=== PATIENT | female | born 1970 | race Caucasian/White ===

== ENCOUNTER → 2016-10-24 | Outpatient (CLI) | payer BC ==
[~2016-10-24] MED LIST: /ADVA50050 IN; /ADVA50050 PO; /LANS30GR PO; ACET65TA OR; ADVAIR INH; CLAR5CHW PO; COLA100C2 OR; DEXI60CA PO; DULO30CA PO; FARX1TAB5 PO; FLEXERIL PO; GABA300C3 PO; HYDR-3713 PO; HYDR25TA6 OR; LISI40TA PO; METF500T PO; MIRA3350 PO; MOVA1TAB2 PO; NAPR500T OR; NEUR100C OR; NEUR300C PO; NUCYNTA OR; ONDA4TAB6 PO; OXYC10TA97 OR; PERC5TAB8 OR; PREV30CA11 PO; PROV90AE INH; REGL10TA6 PO; SOMA350T PO; TIZA4CAP3 PO; VENL75TA2 OR; VICT18IN SC; [UNRECOGNIZED DRUG - OTHER] PO; [UNRECOGNIZED DRUG - OTHER] PO
--- NOTE | 2016-11-11 00:36 | ECWPNPC ---
PATIENT NAME: LJ COKER : 1970 GENDER: FEMALE VISIT DATE: 10/24/2016 DISCHARGE DATE: 10/24/16 1204 VISIT LOCKED DATE TIME: PHYSICIAN: MARIBEL DUNCAN RESOURCE: MARIBEL DUNCAN REASON FOR APPOINTMENT 1. INCREASING PAIN HISTORY OF PRESENT ILLNESS HISTORY OF PRESENT ILLNESS: PAIN THE PATIENT DESCRIBES THE PAIN... HERE FOR POST PROCEDURE F/U.HAD TPI 1216 LEFT UPPER BACK.REPORTS MARKED REDUCTION IN PAIN POST PROCEDURE THAT CONTINUES TODAY.CHIEF AREA OF PAIN LOW BACK AND RIGHT LEG PAIN.HAS RESPONDED TO RSIJ IN PAST.RATING PAIN VAS 10/10. FALL RISK SCREENING: SCREENING :NO FALLS IN THE PAST YEAR CURRENT MEDICATIONS TAKING TIZANIDINE HCL 4 MG TABLET 1 TABLET NEEDED, MAY REPEAT X 1 IN 4 HOURS MDD2 ORALLY QHS PRN FOR SPASMS AND PAIN TAKING ADVAIR DISKUS 250-50 MCG/DOSE MISCELLANEOUS 1 INHALATION EVERY 12 HRS TAKING ALBUTEROL SULFATE HFA 108 (90 BASE) MCG/ACT AEROSOL SOLUTION 2 PUFFS INHALATION EVERY 4 HOURS NEEDED TAKING DEXILANT 60 MG CAPSULE DELAYED RELEASE 1 CAPSULE ORALLY ONCE A DAY TAKING NALOXEGOL OXALATE 25 MG TABLET 1 TABLET IN THE MORNING ORALLY ONCE A DAY NEEDED TAKING MULTIVITAMIN GUMMIES ADULT - TABLET CHEWABLE 2 TABLETS ORALLY DAILY TAKING BIOTIN 5000 5 MG CAPSULE 1 CAPSULE ORALLY ONCE A DAY (UNSURE OF DOSE) TAKING VITAMIN B-12 500 MCG TABLET 1 TABLET ORALLY ONCE A DAY TAKING NORCO 10-325 MG TABLET 1 TABLET ORALLY Q6H PRN FOR PAIN MDD4, NOTES: 0600 NOT-TAKING HYDROCHLOROTHIAZIDE 25 MG TABLET 1 TABLET ORALLY ONCE A DAY NOT-TAKING DAPAGLIFLOZIN PROPANEDIOL 10 MG TABLET 1 TABLET ORALLY ONCE A DAY NOT-TAKING ONDANSETRON 4 MG TABLET DISPERSIBLE 1 TABLET ON THE TONGUE AND ALLOW TO DISSOLVE ORALLY EVERY 8 HRS NOT-TAKING VICTOZA ___ SOLUTION PEN-INJECTOR 1.8 MG SUBCUTANEOUS ONCE A DAY NOT-TAKING LISINOPRIL 20 MG TABLET 1 TABLET ORALLY ONCE A DAY NOT-TAKING VITAMIN D (ERGOCALCIFEROL) 31900 UNIT CAPSULE 1 CAPSULE ORALLY WEEKLY NOT-TAKING CRESTOR _ TABLET 1 TABLET ORALLY ONCE A DAY, NOTES: LAST NIGHT NOT-TAKING PREVACID 30 MG CAPSULE DELAYED RELEASE 1 CAPSULE BEFORE A MEAL ORALLY ONCE A DAY MEDICATION LIST REVIEWED AND RECONCILED WITH THE PATIENT PAST MEDICAL HISTORY ASTHMA HYPERTENSION DIABETES MELLITUS GASTROPARESIS LUMBAR DISC DISORDER WITH RADICULOPATHY LUMBAR RADICULOPATHY LUMBAR SPINAL STENOSIS GASTRIC BYPASS ALLERGIES CIPRO: HIVES: ALLERGY NSAIDSP: CANT USE GASTRIC BYPASS SOCIAL HISTORY GENERAL: TOBACCO USE ARE YOU A:NONSMOKER LEARNING BARRIERS / SPECIAL NEEDS ORIENTED TO PLAN OF CARE: PATIENT, PAIN MANAGEMENT PATIENT, ORIENTED TO PLAN OF CARE: PATIENT, PAIN MANAGEMENT PATIENT. NEW PATIENT PAIN DIARY TODAY'S VISITNOTES FROM 0-10, WHAT LEVEL IS YOUR PAIN TODAY?0 PAIN CLINIC PFS, CLERGY, PUBLIC HEALTH REFERRALS PFS REFERRAL NEEDED?NO CLERGY REFERRAL NEEDED?NO PUBLIC HEALTH REFERRAL NEEDED?NO WAS THE PROVIDER NOTIFIED OF ANY PERTINENT INFO?NO PFS REFERRAL NEEDED?NO CLERGY REFERRAL NEEDED?NO PUBLIC HEALTH REFERRAL NEEDED?NO WAS THE PROVIDER NOTIFIED OF ANY PERTINENT INFO?NO REVIEW OF SYSTEMS CONSTITUTIONAL: ANY CHANGE IN YOUR MEDICAL CONDITION? NO . RECENT ILLNESS DENIES . CHILLS NO . FEVER NO . WEIGHT LOSS DENIES . INFECTION: DO YOU HAVE NEW INFECTIONS? NO . DO YOU HAVE HISTORY OF MRSA? NO . MUSCULOSKELETAL: ANY NEW PATTERNS OF PAIN OR NUMBNESS? NO . GASTROENTEROLOGY: ANY NEW CHANGE IN BOWEL CONTROL? NO . GENITOURINARY: ANY NEW CHANGE IN BLADDER CONTROL? NO . IS THERE A CHANCE YOU COULD BE ? NO . HEMATOLOGY/LYMPH: DO YOU TAKE ANY BLOOD THINNERS? (FOR EXAMPLE- COUMADIN, PLAVIX, AGGRENOX, PLATEL, PRADAXA, OR XARELTO) NO . WHEN WAS YOUR LAST DOSE? DATE: TIME: . NEUROLOGY: HAVE YOU FALLEN IN THE PAST 6 MONTHS? NO . ANY NEW EXTREMITY NUMBNESS OR WEAKNESS? NO . CARDIOLOGY: DO YOU HAVE A PACEMAKER OR DEFIBRILLATOR? NO . CHEST PAIN DENIES . SHORTNESS OF BREATH DENIES . RESPIRATORY: HAVE YOU BEEN SICK IN THE PAST WEEK? NO . FEVER NO . FLU LIKE SYMPTOMS? NO . COUGH NO, DENIES . SHORTNESS OF BREATH DENIES . INTEGUMENTARY: DO YOU HAVE ANY RASHES OR OPEN SORES? NO . ALLERGIC/IMMUNO: ARE YOU ALLERGIC TO SHELLFISH OR IV DYE? NO . ANY NEW ALLERGIES? NO . PSYCHIATRIC: DO YOU HAVE THOUGHTS OF HURTING YOURSELF OR SOMEONE ELSE? NO . ARE YOU ABUSED, NEGLECTED, OR IN AN UNSAFE ENVIRONMENT? NO . ENDOCRINOLOGY: ARE YOU DIABETIC? NO . OTHER: DO YOU NEED ANY PRESCRIPTIONS? NO . IF YES, PLEASE LIST: ____ . ANY NEW PROBLEMS WITH YOUR MEDICATIONS? NO . WHEN DID YOU LAST EAT? ____ . WHEN DID YOU LAST DRINK? ____ . WHAT DID YOU LAST DRINK? ____ . NAME OF PERSON DRIVING YOU HOME? ____ . DO YOU HAVE ANY OTHER QUESTIONS OR CONCERNS NO . REVIEWED BY: PROVIDER: MARIBEL ARMANDO . VITAL SIGNS WT 187 LBS, HT 67 IN, BMI 29.29 INDEX, BP 142/84 MM HG, HR 63 /MIN, RR 18 /MIN, TEMP 97.9 F, OXYGEN SAT % 99%, NA INITIALS SC 11:45. EXAMINATION GENERAL EXAMINATION: LUNGS:LUNG SOUNDS ARE CLEAR. HEART:HEART RATE REGULAR. MUSCULOSKELETAL:*, MUSCLE STRENGTH TESTING 5/5 BILATERAL LOWER EXTREMITIES.SPECIFIC POINT TENDERNESS OVER RSIJ.. DIAGNOSTIC: . ASSESSMENTS SACROILIITIS, NOT ELSEWHERE CLASSIFIED - M46.1 (PRIMARY) MYOFASCIAL PAIN - M79.1 CHRONIC PRESCRIPTION OPIATE USE - Z79.891 TREATMENT SACROILIITIS, NOT ELSEWHERE CLASSIFIED INJECTION ANESTHETIC SACROILIAC JOINT PROCEDURE CODES FA211 ESTABILISHED PATIENT [facility] CHARGE FOLLOW UP 2WK POST PROC (REASON: RSIJ) ELECTRONICALLY SIGNED BY TR QUINTERO ON 11/10/2016 AT 03:23 PM EST DISCLAIMER : THIS IS A VISIT SUMMARY EXTRACTED FROM THE [employer] CHART. IT IS NOT A COPY OF THE [employer] PROGRESS NOTE. RANDY
== END ==
LOC: M PAIN 11:40
PROVIDERS: ATTEND Nurse Practitioner Family
DX: Z09 Encounter for follow-up examination after completed treatment for conditions other than malignant neoplasm (principal); M46.1 Sacroiliitis, not elsewhere classified; M79.1 Myalgia; J45.909 Unspecified asthma, uncomplicated; I10 Essential (primary) hypertension; E11.9 Type 2 diabetes mellitus without complications; K31.84 Gastroparesis; M51.36 Other intervertebral disc degeneration, lumbar region; M48.06 Spinal stenosis, lumbar region; Z88.6 Allergy status to analgesic agent; Z88.8 Allergy status to other drugs, medicaments and biological substances; Z79.891 Long term (current) use of opiate analgesic; Z79.899 Other long term (current) drug therapy

== ENCOUNTER → 2016-10-30 | Outpatient (CLI) | payer BC ==
[~2016-10-30] MED LIST changes: +BUPIVACAINE HCL 0.25% 30 ML VIAL As Ordered ONE; +ISOVUE-M 300 61% 15ML VIAL (Q9967) As Ordered ONE; +LIDOCAINE 1% SDV INJ 30 ML VIAL As Ordered ONE; +TRIAMCINOLONE ACETONIDE SUSP 40 MG/ML VIAL (J3301) As Ordered ONE
--- NOTE | 2016-10-30 19:56 | REP ---
FLUOROSCOPIC GUIDANCE FOR RIGHT SACROILIAC JOINT INJECTION: 10/30/2016. Clinical history: Back pain. C-arm fluoroscopy provided to Dr. De Jesus of the pain clinic with three images presented from that procedure. A needle overlies the lower aspect of the SI joint on all three projections of that right SI joint. Fluoroscopy time: 13-seconds. Signed by Leandro Chamberlain MD 10/30/2016 08:21 P
--- NOTE | 2016-11-05 23:29 | ECWPNPC ---
PATIENT NAME: LJ COKER : 1970 GENDER: FEMALE VISIT DATE: 10/30/2016 DISCHARGE DATE: 10/30/16 1516 VISIT LOCKED DATE TIME: PHYSICIAN: BISI STOKES RESOURCE: BISI STOKES REASON FOR APPOINTMENT 1. SIJ-RIGHT HISTORY OF PRESENT ILLNESS HISTORY OF PRESENT ILLNESS: PAIN THE PATIENT DESCRIBES THE PAIN... FALL RISK SCREENING: SCREENING :NO FALLS IN THE PAST YEAR CURRENT MEDICATIONS TAKING TIZANIDINE HCL 4 MG TABLET 1 TABLET NEEDED, MAY REPEAT X 1 IN 4 HOURS MDD2 ORALLY QHS PRN FOR SPASMS AND PAIN, NOTES: 10-29-16 2200 TAKING ADVAIR DISKUS 250-50 MCG/DOSE MISCELLANEOUS 1 INHALATION EVERY 12 HRS, NOTES: 10-30-16 0800 TAKING ALBUTEROL SULFATE HFA 108 (90 BASE) MCG/ACT AEROSOL SOLUTION 2 PUFFS INHALATION EVERY 4 HOURS NEEDED, NOTES: 10-30-16 0930 TAKING DEXILANT 60 MG CAPSULE DELAYED RELEASE 1 CAPSULE ORALLY ONCE A DAY, NOTES: 10-29-16 TAKING NALOXEGOL OXALATE 25 MG TABLET 1 TABLET IN THE MORNING ORALLY ONCE A DAY NEEDED, NOTES: NONE TAKING MULTIVITAMIN GUMMIES ADULT - TABLET CHEWABLE 2 TABLETS ORALLY DAILY, NOTES: 10-29-16 TAKING BIOTIN 5000 5 MG CAPSULE 1 CAPSULE ORALLY ONCE A DAY (UNSURE OF DOSE), NOTES: 10-29-16 TAKING VITAMIN B-12 500 MCG TABLET 1 TABLET ORALLY ONCE A DAY, NOTES: 10-29-16 TAKING NORCO 10-325 MG TABLET 1 TABLET ORALLY Q6H PRN FOR PAIN MDD4, NOTES: 10-29-16 1900 TAKING CARAFATE 1 GM TABLET 1 TABLET ON AN EMPTY STOMACH ORALLY FOUR TIMES A DAY NOT-TAKING HYDROCHLOROTHIAZIDE 25 MG TABLET 1 TABLET ORALLY ONCE A DAY NOT-TAKING DAPAGLIFLOZIN PROPANEDIOL 10 MG TABLET 1 TABLET ORALLY ONCE A DAY NOT-TAKING ONDANSETRON 4 MG TABLET DISPERSIBLE 1 TABLET ON THE TONGUE AND ALLOW TO DISSOLVE ORALLY EVERY 8 HRS NOT-TAKING VICTOZA ___ SOLUTION PEN-INJECTOR 1.8 MG SUBCUTANEOUS ONCE A DAY NOT-TAKING LISINOPRIL 20 MG TABLET 1 TABLET ORALLY ONCE A DAY NOT-TAKING VITAMIN D (ERGOCALCIFEROL) 87507 UNIT CAPSULE 1 CAPSULE ORALLY WEEKLY NOT-TAKING CRESTOR _ TABLET 1 TABLET ORALLY ONCE A DAY, NOTES: LAST NIGHT NOT-TAKING PREVACID 30 MG CAPSULE DELAYED RELEASE 1 CAPSULE BEFORE A MEAL ORALLY ONCE A DAY MEDICATION LIST REVIEWED AND RECONCILED WITH THE PATIENT PAST MEDICAL HISTORY ASTHMA HYPERTENSION DIABETES MELLITUS GASTROPARESIS LUMBAR DISC DISORDER WITH RADICULOPATHY LUMBAR RADICULOPATHY LUMBAR SPINAL STENOSIS GASTRIC BYPASS ALLERGIES CIPRO: HIVES: ALLERGY NSAIDSP: CANT USE GASTRIC BYPASS SOCIAL HISTORY GENERAL: TOBACCO USE ARE YOU A:NONSMOKER LEARNING BARRIERS / SPECIAL NEEDS ORIENTED TO PLAN OF CARE: PATIENT, PAIN MANAGEMENT PATIENT, ORIENTED TO PLAN OF CARE: PATIENT, PAIN MANAGEMENT PATIENT. NEW PATIENT PAIN DIARY TODAY'S VISITNOTES FROM 0-10, WHAT LEVEL IS YOUR PAIN TODAY?0 PAIN CLINIC PFS, CLERGY, PUBLIC HEALTH REFERRALS PFS REFERRAL NEEDED?NO CLERGY REFERRAL NEEDED?NO PUBLIC HEALTH REFERRAL NEEDED?NO WAS THE PROVIDER NOTIFIED OF ANY PERTINENT INFO?NO PFS REFERRAL NEEDED?NO CLERGY REFERRAL NEEDED?NO PUBLIC HEALTH REFERRAL NEEDED?NO WAS THE PROVIDER NOTIFIED OF ANY PERTINENT INFO?NO REVIEW OF SYSTEMS CONSTITUTIONAL: ANY CHANGE IN YOUR MEDICAL CONDITION? NO . CHILLS NO . FEVER NO . INFECTION: DO YOU HAVE NEW INFECTIONS? NO . DO YOU HAVE HISTORY OF MRSA? NO . MUSCULOSKELETAL: ANY NEW PATTERNS OF PAIN OR NUMBNESS? NO . GASTROENTEROLOGY: ANY NEW CHANGE IN BOWEL CONTROL? NO . GENITOURINARY: ANY NEW CHANGE IN BLADDER CONTROL? NO . IS THERE A CHANCE YOU COULD BE ? NO . HEMATOLOGY/LYMPH: DO YOU TAKE ANY BLOOD THINNERS? (FOR EXAMPLE- COUMADIN, PLAVIX, AGGRENOX, PLATEL, PRADAXA, OR XARELTO) NO . WHEN WAS YOUR LAST DOSE? DATE: TIME: . NEUROLOGY: HAVE YOU FALLEN IN THE PAST 6 MONTHS? NO . ANY NEW EXTREMITY NUMBNESS OR WEAKNESS? NO . CARDIOLOGY: DO YOU HAVE A PACEMAKER OR DEFIBRILLATOR? NO . RESPIRATORY: HAVE YOU BEEN SICK IN THE PAST WEEK? NO . FEVER NO . FLU LIKE SYMPTOMS? NO . COUGH NO . INTEGUMENTARY: DO YOU HAVE ANY RASHES OR OPEN SORES? NO . ALLERGIC/IMMUNO: ARE YOU ALLERGIC TO SHELLFISH OR IV DYE? NO . ANY NEW ALLERGIES? NO . PSYCHIATRIC: DO YOU HAVE THOUGHTS OF HURTING YOURSELF OR SOMEONE ELSE? NO . ARE YOU ABUSED, NEGLECTED, OR IN AN UNSAFE ENVIRONMENT? NO . ENDOCRINOLOGY: ARE YOU DIABETIC? NO . OTHER: DO YOU NEED ANY PRESCRIPTIONS? NO . IF YES, PLEASE LIST: ____ . ANY NEW PROBLEMS WITH YOUR MEDICATIONS? NO . WHEN DID YOU LAST EAT? 10-30-16 0700 . WHEN DID YOU LAST DRINK? 10-30-16 1100 . WHAT DID YOU LAST DRINK? WATER . NAME OF PERSON DRIVING YOU HOME? AYLIN . DO YOU HAVE ANY OTHER QUESTIONS OR CONCERNS NO . REVIEWED BY: PROVIDER: . VITAL SIGNS WT 188 LBS, HT 67 IN, BMI 29.44 INDEX, BP 148/90 MM HG, HR 83 /MIN, RR 16 /MIN, TEMP 97.7 F, OXYGEN SAT % 96, NA INITIALS TL 1326, REVIEWED BY: CM. ASSESSMENTS SACROILIITIS, NOT ELSEWHERE CLASSIFIED - M46.1 (PRIMARY) PROCEDURES PN SI PRE PROCEDURE DIAGNOSIS SACROILIITIS, SACROILIAC JOINT DYSFUNCTION POST PROCEDURE DIAGNOSIS SACROILIITIS, SACROILIAC JOINT DYSFUNCTION PROCEDURE ., RIGHT SACROILIAC JOINT BLOCK SURGEON DR. BISI STOKES DROP PIT WORKER NONE ANESTHESIA LOCAL PRE PROCEDURE NOTE PATIENT WITH HISTORY OF CHRONIC LOW BACK PAIN. I EVALUATED THE PATIENT AND REVIEWED THE CHART. I WENT OVER THE RISKS, ALTERNATIVES, AND BENEFITS ASSOCIATED WITH THIS PROCEDURE. THE PATIENT WOULD LIKE TO PROCEED AND GAVE CONSENT TO PERFORM THE PROCEDURE. THE PATIENT DENIES UNEXPLAINABLE WEIGHT LOSS, FEVER, CHILLS, OR NEW CHANGES IN URINARY OR BOWEL CONTROL DESCRIPTION OF PROCEDURE THE PATIENT WAS BROUGHT TO THE PROCEDURE ROOM AND PLACED IN THE PRONE POSITION. THE LUMBOSACRAL AREA WAS CLEANED WITH CHLORAPREP SOLUTION AND DRAPED ASEPTICALLY. THE PROCEDURE WAS DONE UNDER STERILE CONDITIONS. I CHECKED LATERALITY AND THE LEVEL WHERE THE PROCEDURE WAS GOING TO BE PERFORMED WITH THE PATIENT AND THE SUPPORTING STAFF AT THE MOMENT OF THE TIME OUT IN THE PROCEDURE ROOM. UNDER FLUOROSCOPIC GUIDANCE, TARGET POINT WAS SELECTED AT THE LOWER BORDER OF THE RIGHT SACROILIAC JOINT. TARGET POINT WAS SELECTED AFTER MEDIAL ROTATION AND TILT OF THE MAGNIFIER OF THE C-ARM. LIDOCAINE WAS USED TO NUMB THE SKIN AND SUBCUTANEOUS TISSUE BELOW IT. A SPINAL NEEDLE, 22-GAUGE, WAS ADVANCED UNDER FLUOROSCOPIC GUIDANCE AND FOLLOWING PATIENT FEEDBACK UNTIL THE TARGET AREA WAS TOUCHED. THE POSITION OF THE NEEDLE WAS VERIFIED WITH AP AND LATERAL VIEWS. AFTER PROPER POSITION OF THE NEEDLE WAS ACHIEVED, ISOVUE M DYE 30%, 0.25 ML, WAS INJECTED SHOWING SPREAD OF THE DYE. THEN, A SOLUTION OF 20 MG OF KENALOG WAS INJECTED IN RIGHT JOINT WITH 3 ML OF BUPIVACAINE 0.125%. THERE WAS NO EVIDENCE OF BLOOD, PARESTHESIA OR CEREBROSPINAL FLUID DURING THE PROCEDURE. THE PATIENT WAS SENT TO THE RECOVERY ROOM. THE PATIENT WAS MOVING THE EXTREMITIES AND DOING WELL. THERE WAS NO COMPLICATION DURING THE PROCEDURE. FLUOROSCOPY TIME WAS 13 SECONDS POST PROCEDURE NOTE THE PATIENT WILL BE SEEN IN A FOLLOW UP IN THE NEXT FEW WEEKS. INSTRUCTIONS WERE GIVEN, QUESTIONS WERE ANSWERED, AND THE PATIENT EXPRESSED UNDERSTANDING AND AGREED WITH THE PLAN. INSTRUCTIONS WERE GIVEN, QUESTIONS WERE ANSWERED, PATIENT REPORTS UNDERSTANDING AND AGREES WITH THE PLAN. I, LONDON BAUTISTA, DOCUMENTED THE ABOVE INFORMATION ACTING A SCRIBE FOR DR. STOKES. I HAVE REVIEWED THE ABOVE DOCUMENT, WRITTEN BY LONDON BAUTISTA SCRIBE AND I VERIFY THAT IT IS ACCURATE. DIAGNOSTIC IMAGING [facility] FLUORO GUIDANCE (PAIN)[id number] PROCEDURE CODES 58362 INJECT SACROILIAC JOINT 6045F RADXPS IN END [id number] PXD FOLLOW UP 3 WEEKS ELECTRONICALLY SIGNED BY BISI STOKES MD ON 11/05/2016 AT 09:38 PM EST DISCLAIMER : THIS IS A VISIT SUMMARY EXTRACTED FROM THE [employer] CHART. IT IS NOT A COPY OF THE [employer] PROGRESS NOTE. MTDD
== END ==
LOC: M PAIN 13:20
PROVIDERS: ATTEND Anesthesiology
DX: G89.29 Other chronic pain (principal); M46.1 Sacroiliitis, not elsewhere classified; M53.3 Sacrococcygeal disorders, not elsewhere classified; I10 Essential (primary) hypertension; E11.9 Type 2 diabetes mellitus without complications; J45.909 Unspecified asthma, uncomplicated; M48.06 Spinal stenosis, lumbar region; Z88.6 Allergy status to analgesic agent; Z88.8 Allergy status to other drugs, medicaments and biological substances; Z79.891 Long term (current) use of opiate analgesic; Z79.899 Other long term (current) drug therapy; Z87.39 Personal history of other diseases of the musculoskeletal system and connective tissue
CPT/HCPCS: G0260; J3301; Q9967

== ENCOUNTER → 2017-01-01 | Outpatient (CLI) | payer BC ==
[~2017-01-01] MED LIST changes: -BUPIVACAINE HCL 0.25% 30 ML VIAL As Ordered ONE; -ISOVUE-M 300 61% 15ML VIAL (Q9967) As Ordered ONE; -LIDOCAINE 1% SDV INJ 30 ML VIAL As Ordered ONE; -TRIAMCINOLONE ACETONIDE SUSP 40 MG/ML VIAL (J3301) As Ordered ONE
[2017-01-01 09:17] LABS: MEAN CORPUSCULAR HEMOGLOBIN 27.2 pg (27.0-33.0); MEAN CORPUSCULAR HGB CONC 33.2 g/dl (32.0-36.5); MEAN CORPUSCULAR VOLUME 81.9 fl (80.0-96.0); RED CELL DISTRIBUTION WIDTH 13.4 % (11.5-14.5); WHITE BLOOD COUNT 5.7 K/mm3 (4.0-10.0)
[2017-01-01 09:47] LABS: ALBUMIN 3.4 GM/DL (3.2-5.2); ALBUMIN/GLOBULIN RATIO 1.17 (1.00-1.93); ALKALINE PHOSPHATASE 87 U/L (45-117); ALT/SGPT 34 U/L (12-78); ANION GAP 6 MEQ/L (8-16); AST/SGOT 11 U/L (15-37); BILIRUBIN,TOTAL 0.4 MG/DL (0.2-1.0); BLOOD UREA NITROGEN 10 MG/DL (7-18); CALCIUM LEVEL 8.7 MG/DL (8.5-10.1); CARBON DIOXIDE LEVEL 32 MEQ/L (21-32); CHLORIDE LEVEL 105 MEQ/L (98-107); CHOLESTEROL LEVEL 152 MG/DL (<200); CREATININE FOR GFR 0.76 MG/DL (0.55-1.02); FREE T4 1.17 NG/DL (0.76-1.46); GLOMERULAR FILTRATION RATE > 60.0 (>58); GLUCOSE, FASTING 109 MG/DL (70-105); POTASSIUM SERUM 3.5 MEQ/L (3.5-5.1); SODIUM LEVEL 143 MEQ/L (136-145); TOTAL PROTEIN 6.3 GM/DL (6.4-8.2); TRIGLYCERIDES LEVEL 111 MG/DL (<150)
== END ==
LOC: M LAB 08:56
PROVIDERS: ATTEND Physician Assistant
DX: E11.43 Type 2 diabetes mellitus with diabetic autonomic (poly)neuropathy (principal)

== ENCOUNTER → 2017-01-01 | Outpatient (CLI) | payer BC ==
--- NOTE | 2017-01-01 23:31 | ECWPNPC ---
PATIENT NAME: LJ COKER : 1970 GENDER: FEMALE VISIT DATE: 01/01/2017 DISCHARGE DATE: 01/01/17 1014 VISIT LOCKED DATE TIME: PHYSICIAN: MARIBEL DUNCAN RESOURCE: MARIBEL DUNCAN HISTORY OF PRESENT ILLNESS FALL RISK SCREENING: HERE FOR POST PROCEDURE F/U.HAD RIGHT SIJ 10-30-16.HOURLY PAIN DIARY IS REVIEWED AND SHOWING >50% IMPROVEMENT IN PAIN AND GRADUAL RETURN TO CURRENT PAIN VAS 10/10.USING HYDROCODONE 10/325 Q6H PRN FOR PAIN WHICH SHE FINDS SOMEWHAT HELPFUL.DENIES SIDE EFFECTS.HAVING LEFT HIP REVISION February.DISCUSSED POST OP PAIN CONTROL.THIS WOULD BE UP TO SURGEON FOR POST OP PAIN CONTROL AND WE WOULD CONTINUE WITH CURRENT PRESCRIPTION FOR CHRONIC LBP. SCREENING :NO FALLS IN THE PAST YEAR CURRENT MEDICATIONS TAKING ADVAIR DISKUS 250-50 MCG/DOSE MISCELLANEOUS 1 INHALATION EVERY 12 HRS TAKING ALBUTEROL SULFATE HFA 108 (90 BASE) MCG/ACT AEROSOL SOLUTION 2 PUFFS INHALATION EVERY 4 HOURS NEEDED TAKING DEXILANT 60 MG CAPSULE DELAYED RELEASE 1 CAPSULE ORALLY ONCE A DAY TAKING NALOXEGOL OXALATE 25 MG TABLET 1 TABLET IN THE MORNING ORALLY ONCE A DAY NEEDED TAKING MULTIVITAMIN GUMMIES ADULT - TABLET CHEWABLE 2 TABLETS ORALLY DAILY TAKING BIOTIN 5000 5 MG CAPSULE 1 CAPSULE ORALLY ONCE A DAY (UNSURE OF DOSE) TAKING VITAMIN B-12 500 MCG TABLET 1 TABLET ORALLY ONCE A DAY TAKING CARAFATE 1 GM TABLET 1 TABLET ON AN EMPTY STOMACH ORALLY FOUR TIMES A DAY NEEDED TAKING NORCO 10-325 MG TABLET 1 TABLET ORALLY Q6H PRN FOR PAIN MDD4 TAKING TIZANIDINE HCL 4 MG TABLET 1 TABLET NEEDED, MAY REPEAT X 1 IN 4 HOURS MDD2 ORALLY QHS PRN FOR SPASMS AND PAIN NOT-TAKING HYDROCHLOROTHIAZIDE 25 MG TABLET 1 TABLET ORALLY ONCE A DAY NOT-TAKING DAPAGLIFLOZIN PROPANEDIOL 10 MG TABLET 1 TABLET ORALLY ONCE A DAY NOT-TAKING ONDANSETRON 4 MG TABLET DISPERSIBLE 1 TABLET ON THE TONGUE AND ALLOW TO DISSOLVE ORALLY EVERY 8 HRS NOT-TAKING VICTOZA ___ SOLUTION PEN-INJECTOR 1.8 MG SUBCUTANEOUS ONCE A DAY NOT-TAKING LISINOPRIL 20 MG TABLET 1 TABLET ORALLY ONCE A DAY NOT-TAKING VITAMIN D (ERGOCALCIFEROL) 00034 UNIT CAPSULE 1 CAPSULE ORALLY WEEKLY NOT-TAKING CRESTOR _ TABLET 1 TABLET ORALLY ONCE A DAY, NOTES: LAST NIGHT NOT-TAKING PREVACID 30 MG CAPSULE DELAYED RELEASE 1 CAPSULE BEFORE A MEAL ORALLY ONCE A DAY MEDICATION LIST REVIEWED AND RECONCILED WITH THE PATIENT PAST MEDICAL HISTORY ASTHMA HYPERTENSION DIABETES MELLITUS GASTROPARESIS LUMBAR DISC DISORDER WITH RADICULOPATHY LUMBAR RADICULOPATHY LUMBAR SPINAL STENOSIS GASTRIC BYPASS ALLERGIES CIPRO: HIVES: ALLERGY NSAIDSP: CANT USE GASTRIC BYPASS REVIEW OF SYSTEMS CONSTITUTIONAL: ANY CHANGE IN YOUR MEDICAL CONDITION? NO . CHILLS NO . FEVER NO . INFECTION: DO YOU HAVE NEW INFECTIONS? NO . DO YOU HAVE HISTORY OF MRSA? NO . MUSCULOSKELETAL: ANY NEW PATTERNS OF PAIN OR NUMBNESS? YES, PAIN IN RIGHT HIP . GASTROENTEROLOGY: ANY NEW CHANGE IN BOWEL CONTROL? NO . GENITOURINARY: ANY NEW CHANGE IN BLADDER CONTROL? NO . IS THERE A CHANCE YOU COULD BE ? NO . HEMATOLOGY/LYMPH: DO YOU TAKE ANY BLOOD THINNERS? (FOR EXAMPLE- COUMADIN, PLAVIX, AGGRENOX, PLATEL, PRADAXA, OR XARELTO) NO . WHEN WAS YOUR LAST DOSE? DATE: TIME: . NEUROLOGY: HAVE YOU FALLEN IN THE PAST 6 MONTHS? NO . ANY NEW EXTREMITY NUMBNESS OR WEAKNESS? NO . CARDIOLOGY: DO YOU HAVE A PACEMAKER OR DEFIBRILLATOR? NO . RESPIRATORY: HAVE YOU BEEN SICK IN THE PAST WEEK? NO . FEVER NO . FLU LIKE SYMPTOMS? NO . COUGH NO . INTEGUMENTARY: DO YOU HAVE ANY RASHES OR OPEN SORES? NO . ALLERGIC/IMMUNO: ARE YOU ALLERGIC TO SHELLFISH OR IV DYE? NO . ANY NEW ALLERGIES? NO . PSYCHIATRIC: DO YOU HAVE THOUGHTS OF HURTING YOURSELF OR SOMEONE ELSE? NO . ARE YOU ABUSED, NEGLECTED, OR IN AN UNSAFE ENVIRONMENT? NO . ENDOCRINOLOGY: ARE YOU DIABETIC? NO . OTHER: DO YOU NEED ANY PRESCRIPTIONS? NO . IF YES, PLEASE LIST: ____ . ANY NEW PROBLEMS WITH YOUR MEDICATIONS? NO . WHEN DID YOU LAST EAT? ____ . WHEN DID YOU LAST DRINK? ____ . WHAT DID YOU LAST DRINK? ____ . NAME OF PERSON DRIVING YOU HOME? ____ . DO YOU HAVE ANY OTHER QUESTIONS OR CONCERNS NO . REVIEWED BY: PROVIDER: MARIBEL ARMANDO . VITAL SIGNS WT 182 LBS, HT 67 IN, BMI 28.50 INDEX, BP 139/81 MM HG, HR 54 /MIN, RR 16 /MIN, TEMP 98.8 F, OXYGEN SAT % 97%, NA INITIALS SC 09:21, REVIEWED BY: HARJINDER. EXAMINATION GENERAL EXAMINATION: LUNGS:LUNG SOUNDS ARE CLEAR. HEART:HEART RATE REGULAR. MUSCULOSKELETAL:*, MUSCLE STRENGTH TESTING 5/5 BILATERAL LOWER EXTREMITIES.SPECIFIC POINT TENDERNESS OVER RSIJ.. DIAGNOSTIC: . ASSESSMENTS SACROILIITIS, NOT ELSEWHERE CLASSIFIED - M46.1 (PRIMARY) CHRONIC PRESCRIPTION OPIATE USE - Z79.891 TREATMENT SACROILIITIS, NOT ELSEWHERE CLASSIFIED REFILL NORCO TABLET, 10-325 MG, 1 TABLET, ORALLY, Q6H PRN FOR PAIN MDD4, 30 DAY(S), 100, REFILLS 0 REFILL TIZANIDINE HCL TABLET, 4 MG, 1-2, ORALLY, QHS PRN FOR SPASMS AND PAIN, 30 DAY(S), 60, REFILLS 2 INJECTION ANESTHETIC SACROILIAC JOINTMARIBEL DUNCAN 01/01/2017 9:53:49 AM > R SIJ NOTES: ISTOP REGISTRY REVIEWED AND DEMNOSTRATES COMPLLIANCE. BRINGS IN MEDICATIONS WHICH IS APPROPRIATE FOR WHAT WAS DISPENSED. RECENT URINE TOXICOLOGY REVIEWED. NO UNAUTHORIZED MEDICATIONS. NO ILLICIT SUBSTANCES AND PRESCRIBED MEDICATIONS WERE PRESENT. , RISKS AND BENEFITS OF NARCOTIC/OPIOD MEDICATIONS WERE REVIEWED WITH PATIENT - THIS INCLUDES BUT IS NOT LIMITED TO RISK OF DEPENDANCE/DEVELOPMENT OF ADDICTION, MOOD DISTURBANCE AND DEPRESSION, OSTEOPOROSIS, HORMONAL AND LABIDAL CHANGES, RESPIRATORY DEPRESSION AND . PATIENT IS ADVISED NOT TO DRIVE WHILE ON THESE MEDICATIONS. PROCEDURE CODES FA211 ESTABILISHED PATIENT [facility] CHARGE DISPOSITION & COMMUNICATION FOLLOW UP 2WK POST (REASON: RIGHT SIJ) ELECTRONICALLY SIGNED BY TR QUINTERO ON 01/01/2017 AT 01:24 PM EDT DISCLAIMER : THIS IS A VISIT SUMMARY EXTRACTED FROM THE [employer] CHART. IT IS NOT A COPY OF THE [employer] PROGRESS NOTE. RANDY
== END ==
LOC: M PAIN 09:20
PROVIDERS: ATTEND Nurse Practitioner Family
DX: M46.1 Sacroiliitis, not elsewhere classified (principal); Z79.891 Long term (current) use of opiate analgesic; Z79.899 Other long term (current) drug therapy; Z88.1 Allergy status to other antibiotic agents; Z88.8 Allergy status to other drugs, medicaments and biological substances; J45.909 Unspecified asthma, uncomplicated; I10 Essential (primary) hypertension; E11.9 Type 2 diabetes mellitus without complications; Z98.84 Bariatric surgery status

== ENCOUNTER → 2017-01-28 | Outpatient (CLI) | payer BC ==
[~2017-01-28] MED LIST changes: +BUPIVACAINE HCL 0.25% 30 ML VIAL As Ordered ONE; +GABA-282 PO; -GABA300C3 PO; +ISOVUE-M 300 61% 15ML VIAL (Q9967) As Ordered ONE; +LIDOCAINE 1% SDV INJ 30 ML VIAL As Ordered ONE; +TRIAMCINOLONE ACETONIDE SUSP 40 MG/ML VIAL (J3301) As Ordered ONE
--- NOTE | 2017-01-28 15:23 | REP ---
SI JOINT SERIES: Single view. HISTORY: Injection procedure for pain. 11 seconds of fluoroscopy time is reported. FINDINGS: A single fluoroscopic last image hold spot radiograph of one of the SI joints document needle position and contrast injection. No laterality marker is seen. Signed by Nic Wise MD 01/28/2017 05:04 P
--- NOTE | 2017-02-02 00:03 | ECWPNPC ---
PATIENT NAME: LJ COKER : 1970 GENDER: FEMALE VISIT DATE: 01/28/2017 DISCHARGE DATE: 01/28/17 1025 VISIT LOCKED DATE TIME: PHYSICIAN: BISI STOKES RESOURCE: BISI STOKES REASON FOR APPOINTMENT 1. [facility] HISTORY OF PRESENT ILLNESS HISTORY OF PRESENT ILLNESS: PAIN THE PATIENT DESCRIBES THE PAIN... FALL RISK SCREENING: SCREENING :NO FALLS IN THE PAST YEAR CURRENT MEDICATIONS TAKING ADVAIR DISKUS 250-50 MCG/DOSE MISCELLANEOUS 1 INHALATION EVERY 12 HRS, NOTES: 01/28/17 07 TAKING ALBUTEROL SULFATE HFA 108 (90 BASE) MCG/ACT AEROSOL SOLUTION 2 PUFFS INHALATION EVERY 4 HOURS NEEDED, NOTES: 01/27/17 1400 TAKING DEXILANT 60 MG CAPSULE DELAYED RELEASE 1 CAPSULE ORALLY ONCE A DAY, NOTES: 01/27/171399 TAKING NALOXEGOL OXALATE 25 MG TABLET 1 TABLET IN THE MORNING ORALLY ONCE A DAY NEEDED, NOTES: NONE RECENT TAKING MULTIVITAMIN GUMMIES ADULT - TABLET CHEWABLE 2 TABLETS ORALLY DAILY, NOTES: MONTH AGO TAKING BIOTIN 5000 5 MG CAPSULE 1 CAPSULE ORALLY ONCE A DAY (UNSURE OF DOSE), NOTES: 01/28/17699 TAKING VITAMIN B-12 1000 MCG TABLET SUBLINGUAL 3 TABS SUBLINGUAL ONCE A DAY, NOTES: 01/28/17699 TAKING CARAFATE 1 GM TABLET 1 TABLET ON AN EMPTY STOMACH ORALLY FOUR TIMES A DAY NEEDED, NOTES: NONE RECENT TAKING NORCO 10-325 MG TABLET 1 TABLET ORALLY Q6H PRN FOR PAIN MDD4, NOTES: 01/28/17 030 TAKING TIZANIDINE HCL 4 MG TABLET 1-2 ORALLY QHS PRN FOR SPASMS AND PAIN, NOTES: 01/28/17 030 TAKING FOLIC ACID 1 MG TABLET 1 TABLET ORALLY ONCE A DAY, NOTES: 01/28/17699 TAKING AMOXICILLIN 500 MG CAPSULE 1 CAPSULE ORALLY PRIOR TO DENTAL WORK, NOTES: 01/28/17699 NOT-TAKING HYDROCHLOROTHIAZIDE 25 MG TABLET 1 TABLET ORALLY ONCE A DAY NOT-TAKING DAPAGLIFLOZIN PROPANEDIOL 10 MG TABLET 1 TABLET ORALLY ONCE A DAY NOT-TAKING ONDANSETRON 4 MG TABLET DISPERSIBLE 1 TABLET ON THE TONGUE AND ALLOW TO DISSOLVE ORALLY EVERY 8 HRS NOT-TAKING VICTOZA ___ SOLUTION PEN-INJECTOR 1.8 MG SUBCUTANEOUS ONCE A DAY NOT-TAKING LISINOPRIL 20 MG TABLET 1 TABLET ORALLY ONCE A DAY NOT-TAKING VITAMIN D (ERGOCALCIFEROL) 12326 UNIT CAPSULE 1 CAPSULE ORALLY WEEKLY NOT-TAKING CRESTOR _ TABLET 1 TABLET ORALLY ONCE A DAY, NOTES: LAST NIGHT NOT-TAKING PREVACID 30 MG CAPSULE DELAYED RELEASE 1 CAPSULE BEFORE A MEAL ORALLY ONCE A DAY MEDICATION LIST REVIEWED AND RECONCILED WITH THE PATIENT PAST MEDICAL HISTORY ASTHMA HYPERTENSION DIABETES MELLITUS GASTROPARESIS LUMBAR DISC DISORDER WITH RADICULOPATHY LUMBAR RADICULOPATHY LUMBAR SPINAL STENOSIS GASTRIC BYPASS ALLERGIES CIPRO: HIVES: ALLERGY NSAIDSP: CANT USE GASTRIC BYPASS SOCIAL HISTORY GENERAL: PAIN CLINIC PFS, CLERGY, PUBLIC HEALTH REFERRALS CLERGY REFERRAL NEEDED?NO WAS THE PROVIDER NOTIFIED OF ANY PERTINENT INFO?NO PFS REFERRAL NEEDED?NO PUBLIC HEALTH REFERRAL NEEDED?NO PATIENT: ____. REVIEW OF SYSTEMS CONSTITUTIONAL: ANY CHANGE IN YOUR MEDICAL CONDITION? NO . CHILLS NO . FEVER NO . INFECTION: DO YOU HAVE NEW INFECTIONS? NO . DO YOU HAVE HISTORY OF MRSA? NO . MUSCULOSKELETAL: ANY NEW PATTERNS OF PAIN OR NUMBNESS? YES, SEVERE PAIN RIGHT HIP X 1 MONTH . GASTROENTEROLOGY: ANY NEW CHANGE IN BOWEL CONTROL? NO . GENITOURINARY: ANY NEW CHANGE IN BLADDER CONTROL? NO . IS THERE A CHANCE YOU COULD BE ? NO . HEMATOLOGY/LYMPH: DO YOU TAKE ANY BLOOD THINNERS? (FOR EXAMPLE- COUMADIN, PLAVIX, AGGRENOX, PLATEL, PRADAXA, OR XARELTO) NO . WHEN WAS YOUR LAST DOSE? DATE: TIME: . NEUROLOGY: HAVE YOU FALLEN IN THE PAST 6 MONTHS? NO . ANY NEW EXTREMITY NUMBNESS OR WEAKNESS? NO . CARDIOLOGY: DO YOU HAVE A PACEMAKER OR DEFIBRILLATOR? NO . RESPIRATORY: HAVE YOU BEEN SICK IN THE PAST WEEK? NO . FEVER NO . FLU LIKE SYMPTOMS? NO . COUGH NO . INTEGUMENTARY: DO YOU HAVE ANY RASHES OR OPEN SORES? NO . ALLERGIC/IMMUNO: ARE YOU ALLERGIC TO SHELLFISH OR IV DYE? NO . ANY NEW ALLERGIES? NO . PSYCHIATRIC: DO YOU HAVE THOUGHTS OF HURTING YOURSELF OR SOMEONE ELSE? NO . ARE YOU ABUSED, NEGLECTED, OR IN AN UNSAFE ENVIRONMENT? NO . ENDOCRINOLOGY: ARE YOU DIABETIC? NO . OTHER: DO YOU NEED ANY PRESCRIPTIONS? NO . IF YES, PLEASE LIST: ____ . ANY NEW PROBLEMS WITH YOUR MEDICATIONS? NO . WHEN DID YOU LAST EAT? ____01/27/17 2230 . WHEN DID YOU LAST DRINK? 01/28/17 0700____ . WHAT DID YOU LAST DRINK? WATER . NAME OF PERSON DRIVING YOU HOME? ____EDER SAEED . DO YOU HAVE ANY OTHER QUESTIONS OR CONCERNS NO . REVIEWED BY: PROVIDER: . VITAL SIGNS WT 182.0 LBS, HT 67 IN, BMI 28.50 INDEX, BP 148/88 MM HG, HR 60 /MIN, RR 18 /MIN, TEMP 97.2 F, OXYGEN SAT % 98%, NA INITIALS AW 0856, REVIEWED BY: AD. ASSESSMENTS SACROILIITIS, NOT ELSEWHERE CLASSIFIED - M46.1 (PRIMARY) PROCEDURES PN SI PRE PROCEDURE DIAGNOSIS SACROILIITIS, SACROILIAC JOINT DYSFUNCTION POST PROCEDURE DIAGNOSIS SACROILIITIS, SACROILIAC JOINT DYSFUNCTION PROCEDURE ., RIGHT SACROILIAC JOINT BLOCK SURGEON DR. BISI STOKES VISITOR SERVICES REPRESENTATIVE NONE ANESTHESIA LOCAL PRE PROCEDURE NOTE PATIENT WITH HISTORY OF CHRONIC LOW BACK PAIN. I EVALUATED THE PATIENT AND REVIEWED THE CHART. I WENT OVER THE RISKS, ALTERNATIVES, AND BENEFITS ASSOCIATED WITH THIS PROCEDURE. THE PATIENT WOULD LIKE TO PROCEED AND GAVE CONSENT TO PERFORM THE PROCEDURE. THE PATIENT DENIES UNEXPLAINABLE WEIGHT LOSS, FEVER, CHILLS, OR NEW CHANGES IN URINARY OR BOWEL CONTROL DESCRIPTION OF PROCEDURE THE PATIENT WAS BROUGHT TO THE PROCEDURE ROOM AND PLACED IN THE PRONE POSITION. THE LUMBOSACRAL AREA WAS CLEANED WITH CHLORAPREP SOLUTION AND DRAPED ASEPTICALLY. THE PROCEDURE WAS DONE UNDER STERILE CONDITIONS. I CHECKED LATERALITY AND THE LEVEL WHERE THE PROCEDURE WAS GOING TO BE PERFORMED WITH THE PATIENT AND THE SUPPORTING STAFF AT THE MOMENT OF THE TIME OUT IN THE PROCEDURE ROOM. UNDER FLUOROSCOPIC GUIDANCE, TARGET POINT WAS SELECTED AT THE LOWER BORDER OF THE RIGHT SACROILIAC JOINT. TARGET POINT WAS SELECTED AFTER MEDIAL ROTATION AND TILT OF THE MAGNIFIER OF THE C-ARM. LIDOCAINE WAS USED TO NUMB THE SKIN AND SUBCUTANEOUS TISSUE BELOW IT. A SPINAL NEEDLE, 22-GAUGE, WAS ADVANCED UNDER FLUOROSCOPIC GUIDANCE AND FOLLOWING PATIENT FEEDBACK UNTIL THE TARGET AREA WAS TOUCHED. THE POSITION OF THE NEEDLE WAS VERIFIED WITH AP AND LATERAL VIEWS. AFTER PROPER POSITION OF THE NEEDLE WAS ACHIEVED, ISOVUE M DYE 30%, 0.25 ML, WAS INJECTED SHOWING SPREAD OF THE DYE. THEN, A SOLUTION OF 20 MG OF KENALOG WAS INJECTED IN RIGHT JOINT WITH 3 ML OF BUPIVACAINE 0.125%. THERE WAS NO EVIDENCE OF BLOOD, PARESTHESIA OR CEREBROSPINAL FLUID DURING THE PROCEDURE. THE PATIENT WAS SENT TO THE RECOVERY ROOM. THE PATIENT WAS MOVING THE EXTREMITIES AND DOING WELL. THERE WAS NO COMPLICATION DURING THE PROCEDURE. FLUOROSCOPY TIME WAS 11 SECONDS POST PROCEDURE NOTE THE PATIENT WILL BE SEEN IN A FOLLOW UP IN THE NEXT FEW WEEKS. INSTRUCTIONS WERE GIVEN, QUESTIONS WERE ANSWERED, AND THE PATIENT EXPRESSED UNDERSTANDING AND AGREED WITH THE PLAN. I, LONDON BAUTISTA, DOCUMENTED THE ABOVE INFORMATION ACTING A SCRIBE FOR DR. STOKES. I HAVE REVIEWED THE ABOVE DOCUMENT, WRITTEN BY LONDON BAUTISTA SCRIBE AND I VERIFY THAT IT IS ACCURATE. [facility] FLUORO GUIDANCE (PAIN)[id number] PROCEDURE CODES 07047 INJECT SACROILIAC JOINT 6045F RADXPS IN END [id number] PXD DISPOSITION & COMMUNICATION FOLLOW UP 3 WEEKS ELECTRONICALLY SIGNED BY BISI STOKES MD ON 02/01/2017 AT 06:00 PM EDT DISCLAIMER : THIS IS A VISIT SUMMARY EXTRACTED FROM THE [facility] CHART. IT IS NOT A COPY OF THE [facility] PROGRESS NOTE. MTDD
== END ==
LOC: M PAIN 08:40
PROVIDERS: ATTEND Anesthesiology
DX: G89.29 Other chronic pain (principal); M46.1 Sacroiliitis, not elsewhere classified; M54.5 Low back pain; M51.16 Intervertebral disc disorders with radiculopathy, lumbar region; M48.06 Spinal stenosis, lumbar region; J45.909 Unspecified asthma, uncomplicated; I10 Essential (primary) hypertension; E11.9 Type 2 diabetes mellitus without complications; Z79.51 Long term (current) use of inhaled steroids; Z79.891 Long term (current) use of opiate analgesic; Z79.899 Other long term (current) drug therapy; Z88.1 Allergy status to other antibiotic agents
CPT/HCPCS: G0260; J3301; Q9967

== ENCOUNTER → 2017-02-12 | Outpatient (CLI) | payer BC ==
[~2017-02-12] MED LIST changes: -BUPIVACAINE HCL 0.25% 30 ML VIAL As Ordered ONE; -ISOVUE-M 300 61% 15ML VIAL (Q9967) As Ordered ONE; -LIDOCAINE 1% SDV INJ 30 ML VIAL As Ordered ONE; -TRIAMCINOLONE ACETONIDE SUSP 40 MG/ML VIAL (J3301) As Ordered ONE
--- NOTE | 2017-02-26 01:38 | ECWPNPC ---
PATIENT NAME: LJ COKER : 1970 GENDER: FEMALE VISIT DATE: 02/12/2017 DISCHARGE DATE: 02/12/17 1544 VISIT LOCKED DATE TIME: PHYSICIAN: MARIBEL DUNCAN RESOURCE: MARIBEL DUNCAN REASON FOR APPOINTMENT 1. POST [facility] HISTORY OF PRESENT ILLNESS HISTORY OF PRESENT ILLNESS: HERE FOR POST PROCEDURE F/U.HAD RIGHT SIJ ON 01-28-17.REPORTS 10 DAYS OF SOME IMPROVEMENT IN PAIN THEN PAIN HAS RETURNED TO BASELINE.CHIEF AREA OF CHRONIC PAIN AND PARATHESIA IS RIGHT FOOT.REPORTS RIGHT FOOT GOES COLD AND IS FREEZING.HAVING LEFT HIP REVISION/REPLACEMENT IN 2 WEEKS. HX OF 4 LEFT HIP SURGERIES LAST BEING 2009. PAIN THE PATIENT DESCRIBES THE PAIN... FALL RISK SCREENING: SCREENING :NO FALLS IN THE PAST YEAR CURRENT MEDICATIONS TAKING ADVAIR DISKUS 250-50 MCG/DOSE MISCELLANEOUS 1 INHALATION EVERY 12 HRS TAKING ALBUTEROL SULFATE HFA 108 (90 BASE) MCG/ACT AEROSOL SOLUTION 2 PUFFS INHALATION EVERY 4 HOURS NEEDED TAKING DEXILANT 60 MG CAPSULE DELAYED RELEASE 1 CAPSULE ORALLY ONCE A DAY TAKING NALOXEGOL OXALATE 25 MG TABLET 1 TABLET IN THE MORNING ORALLY ONCE A DAY NEEDED TAKING MULTIVITAMIN GUMMIES ADULT - TABLET CHEWABLE 2 TABLETS ORALLY DAILY TAKING BIOTIN 5000 5 MG CAPSULE 1 CAPSULE ORALLY ONCE A DAY (UNSURE OF DOSE) TAKING VITAMIN B-12 1000 MCG TABLET SUBLINGUAL 3 TABS SUBLINGUAL ONCE A DAY TAKING CARAFATE 1 GM TABLET 1 TABLET ON AN EMPTY STOMACH ORALLY FOUR TIMES A DAY NEEDED TAKING NORCO 10-325 MG TABLET 1 TABLET ORALLY Q6H PRN FOR PAIN MDD4 TAKING TIZANIDINE HCL 4 MG TABLET 1-2 ORALLY QHS PRN FOR SPASMS AND PAIN TAKING FOLIC ACID 1 MG TABLET 1 TABLET ORALLY ONCE A DAY TAKING AMOXICILLIN 500 MG CAPSULE 1 CAPSULE ORALLY PRIOR TO DENTAL WORK NOT-TAKING HYDROCHLOROTHIAZIDE 25 MG TABLET 1 TABLET ORALLY ONCE A DAY NOT-TAKING DAPAGLIFLOZIN PROPANEDIOL 10 MG TABLET 1 TABLET ORALLY ONCE A DAY NOT-TAKING ONDANSETRON 4 MG TABLET DISPERSIBLE 1 TABLET ON THE TONGUE AND ALLOW TO DISSOLVE ORALLY EVERY 8 HRS NOT-TAKING VICTOZA ___ SOLUTION PEN-INJECTOR 1.8 MG SUBCUTANEOUS ONCE A DAY NOT-TAKING LISINOPRIL 20 MG TABLET 1 TABLET ORALLY ONCE A DAY NOT-TAKING VITAMIN D (ERGOCALCIFEROL) 06524 UNIT CAPSULE 1 CAPSULE ORALLY WEEKLY NOT-TAKING CRESTOR _ TABLET 1 TABLET ORALLY ONCE A DAY, NOTES: LAST NIGHT NOT-TAKING PREVACID 30 MG CAPSULE DELAYED RELEASE 1 CAPSULE BEFORE A MEAL ORALLY ONCE A DAY MEDICATION LIST REVIEWED AND RECONCILED WITH THE PATIENT PAST MEDICAL HISTORY ASTHMA HYPERTENSION DIABETES MELLITUS GASTROPARESIS LUMBAR DISC DISORDER WITH RADICULOPATHY LUMBAR RADICULOPATHY LUMBAR SPINAL STENOSIS GASTRIC BYPASS ALLERGIES CIPRO: HIVES: ALLERGY NSAIDSP: CANT USE GASTRIC BYPASS REVIEW OF SYSTEMS CONSTITUTIONAL: ANY CHANGE IN YOUR MEDICAL CONDITION? NO . CHILLS NO . FEVER NO . INFECTION: DO YOU HAVE NEW INFECTIONS? NO . DO YOU HAVE HISTORY OF MRSA? NO . MUSCULOSKELETAL: ANY NEW PATTERNS OF PAIN OR NUMBNESS? NO . GASTROENTEROLOGY: ANY NEW CHANGE IN BOWEL CONTROL? NO . GENITOURINARY: ANY NEW CHANGE IN BLADDER CONTROL? NO . IS THERE A CHANCE YOU COULD BE ? NO . HEMATOLOGY/LYMPH: DO YOU TAKE ANY BLOOD THINNERS? (FOR EXAMPLE- COUMADIN, PLAVIX, AGGRENOX, PLATEL, PRADAXA, OR XARELTO) NO . WHEN WAS YOUR LAST DOSE? DATE: TIME: . NEUROLOGY: HAVE YOU FALLEN IN THE PAST 6 MONTHS? NO . ANY NEW EXTREMITY NUMBNESS OR WEAKNESS? NO . CARDIOLOGY: DO YOU HAVE A PACEMAKER OR DEFIBRILLATOR? NO . RESPIRATORY: HAVE YOU BEEN SICK IN THE PAST WEEK? NO . FEVER NO . FLU LIKE SYMPTOMS? NO . COUGH NO . INTEGUMENTARY: DO YOU HAVE ANY RASHES OR OPEN SORES? NO . ALLERGIC/IMMUNO: ARE YOU ALLERGIC TO SHELLFISH OR IV DYE? NO . ANY NEW ALLERGIES? NO . PSYCHIATRIC: DO YOU HAVE THOUGHTS OF HURTING YOURSELF OR SOMEONE ELSE? NO . ARE YOU ABUSED, NEGLECTED, OR IN AN UNSAFE ENVIRONMENT? NO . ENDOCRINOLOGY: ARE YOU DIABETIC? NO . OTHER: DO YOU NEED ANY PRESCRIPTIONS? NO . IF YES, PLEASE LIST: ____ . ANY NEW PROBLEMS WITH YOUR MEDICATIONS? NO . WHEN DID YOU LAST EAT? ____ . WHEN DID YOU LAST DRINK? ____ . WHAT DID YOU LAST DRINK? ____ . NAME OF PERSON DRIVING YOU HOME? ____ . DO YOU HAVE ANY OTHER QUESTIONS OR CONCERNS NO . REVIEWED BY: PROVIDER: MARIBEL ARMANDO . VITAL SIGNS WT 178.0 LBS, HT 67 IN, BMI 27.88 INDEX, BP 127/82 MM HG, HR 68 /MIN, RR 16 /MIN, TEMP 97.9 F, OXYGEN SAT % 98%, NA INITIALS TL 1438, REVIEWED BY: AD. EXAMINATION GENERAL EXAMINATION: LUNGS:LUNG SOUNDS ARE CLEAR. HEART:HEART RATE REGULAR. MUSCULOSKELETAL:*, MUSCLE STRENGTH TESTING 5/5 BILATERAL LOWER EXTREMITIES.SPECIFIC POINT TENDERNESS OVER RSIJ.. DIAGNOSTIC:MRI L/S [id number]-REVIEWED. ASSESSMENTS SACROILIITIS, NOT ELSEWHERE CLASSIFIED - M46.1 (PRIMARY) CHRONIC PRESCRIPTION OPIATE USE - Z79.891 TREATMENT SACROILIITIS, NOT ELSEWHERE CLASSIFIED REFILL NORCO TABLET, 10-325 MG, 1 TABLET, ORALLY, Q6H PRN FOR PAIN MDD4, 30 DAY(S), 100, REFILLS 0 CONTINUE TIZANIDINE HCL TABLET, 4 MG, 1-2, ORALLY, QHS PRN FOR SPASMS AND PAIN, 30 DAY(S), 60, REFILLS 1 PROCEDURE CODES FA211 ESTABILISHED PATIENT [facility] CHARGE DISPOSITION & COMMUNICATION FOLLOW UP 2 MONTHS ELECTRONICALLY SIGNED BY TR QUINTERO ON 02/25/2017 AT 05:00 PM EDT DISCLAIMER : THIS IS A VISIT SUMMARY EXTRACTED FROM THE [facility] CHART. IT IS NOT A COPY OF THE [facility] PROGRESS NOTE. RANDY
== END ==
LOC: M PAIN 14:00
PROVIDERS: ATTEND Nurse Practitioner Family
DX: M46.1 Sacroiliitis, not elsewhere classified (principal); Z79.891 Long term (current) use of opiate analgesic; Z79.899 Other long term (current) drug therapy; Z79.2 Long term (current) use of antibiotics; Z88.1 Allergy status to other antibiotic agents; Z88.8 Allergy status to other drugs, medicaments and biological substances; I10 Essential (primary) hypertension; E11.9 Type 2 diabetes mellitus without complications; K31.84 Gastroparesis; J45.909 Unspecified asthma, uncomplicated; Z98.84 Bariatric surgery status

== ENCOUNTER → 2017-03-03 | Outpatient (REF) | payer BC ==
[2017-03-03 12:44] LABS: INR 1.7
== END ==
LOC: M LAB REF 12:17
PROVIDERS: ATTEND Orthopaedic Surgery
DX: Z79.01 Long term (current) use of anticoagulants (principal)

== ENCOUNTER → 2017-03-05 | Outpatient (REF) | payer BC ==
[2017-03-05 16:50] LABS: INR 2.2
== END ==
LOC: M LAB REF 15:49
PROVIDERS: ATTEND Orthopaedic Surgery
DX: Z79.01 Long term (current) use of anticoagulants (principal)

== ENCOUNTER → 2017-03-13 | Outpatient (CLI) | payer BC ==
[2017-03-13 18:01] LABS: INR 1.74
== END ==
LOC: M LAB 17:15
PROVIDERS: ATTEND Orthopaedic Surgery
DX: M25.552 Pain in left hip (principal)

== ENCOUNTER → 2017-03-17 | Outpatient (CLI) | payer BC ==
[2017-03-17 13:29] LABS: INR 1.78
== END ==
LOC: M LAB 12:51
PROVIDERS: ATTEND Orthopaedic Surgery
DX: Z79.01 Long term (current) use of anticoagulants (principal)

== ENCOUNTER → 2017-03-20 | Outpatient (CLI) | payer BC ==
[2017-03-20 13:34] LABS: INR 2.04
== END ==
LOC: M LAB 13:09
PROVIDERS: ATTEND Orthopaedic Surgery
DX: Z79.01 Long term (current) use of anticoagulants (principal)

== ENCOUNTER → 2017-03-24 | Outpatient (CLI) | payer BC ==
[~2017-03-24] MED LIST changes: +ADV250INH INH; +ALBU17IN2 INH; +MULT1TAB10 PO; +OXYC-517 PO; +ZANA4TAB PO
[2017-03-24 13:48] LABS: INR 1.75
== END ==
LOC: M LAB 12:46
PROVIDERS: ATTEND Orthopaedic Surgery
DX: Z79.01 Long term (current) use of anticoagulants (principal)

== ENCOUNTER 2017-03-29 09:26 | Observation (INO) | payer BC ==
[~2017-03-29] VITALS: Ht 167.6 cm; Wt 84.9 kg
[~2017-03-29 09:26] MED LIST changes: -ADV250INH INH; -ALBU17IN2 INH; -DEXI60CA PO; +DEXI60CA2 PO; -METF500T PO; +METF500T13 PO; -MULT1TAB10 PO; -OXYC-517 PO; +PREV1CAP PO; -PREV30CA11 PO; -ZANA4TAB PO
--- NOTE | 2017-03-29 10:06 | REP ---
Portable chest x-ray: Single view. History: Chest pain. Comparison chest x-ray: February 12, 2016. Findings: EKG monitoring electrodes overlie the chest. The patient is status post cervical discectomy and fusion plating. The lungs are well inflated and clear. The pleural angles are sharp. Heart size is normal. No significant bony abnormality is appreciated. Pulmonary vasculature is not increased. Impression: No active disease. Signed by Nic Wise MD 03/29/2017 11:32 A
[2017-03-29] MEDS ORDERED: ONDANSETRON 4MG/2ML VIAL (J2405) IV ONE (10:15)
[2017-03-29] MEDS ORDERED: NS 1,000 ML IV ONE (10:15)
[2017-03-29] MEDS ORDERED: MORPHINE 4 MG/ML 1ML SYRINGE IV ONE ×2 (10:15→13:30)
[2017-03-29 10:19] LABS: INR 1.09
[2017-03-29 10:39] LABS: BASO % 0.3 % (0.0-1.0); EOS # 0.2 K/mm3 (0.0-0.50); EOS % 2.2 % (0.0-3.0); LARGE UNSTAINED CELL % 0.4 % (0.0-4.0); LYMPH # 1.2 K/mm3 (1.5-4.5); LYMPH % 12.8 % (24.0-44.0); MEAN CORPUSCULAR HEMOGLOBIN 26.8 pg (27.0-33.0); MEAN CORPUSCULAR HGB CONC 31.5 g/dl (32.0-36.5); MEAN CORPUSCULAR VOLUME 85.1 fl (80.0-96.0); MONO # 0.2 K/mm3 (0.0-0.8); MONO % 2.2 % (0.0-5.0); NEUTROPHILS % 82.4 % (36.0-66.0); PLATELET COUNT, AUTOMATED 229 k/mm3 (150-450); RED CELL DISTRIBUTION WIDTH 14.1 % (11.5-14.5); WHITE BLOOD COUNT 9.6 K/mm3 (4.0-10.0)
[2017-03-29] MEDS ORDERED: ACETAMINOPHEN TAB 650MG DOSE (2X325MG) PO ONE ×2 (11:15→14:00)
[2017-03-29 11:19] LABS: ALBUMIN 3.9 GM/DL (3.2-5.2); ALBUMIN/GLOBULIN RATIO 1.18 (1.00-1.93); ALKALINE PHOSPHATASE 139 U/L (45-117); ALT/SGPT 30 U/L (12-78); ANION GAP 7 MEQ/L (8-16); AST/SGOT 21 U/L (15-37); BILIRUBIN,DIRECT 0.2 MG/DL (0.0-0.2); BILIRUBIN,TOTAL 0.5 MG/DL (0.2-1.0); BLOOD UREA NITROGEN 10 MG/DL (7-18); CALCIUM LEVEL 8.8 MG/DL (8.5-10.1); CARBON DIOXIDE LEVEL 30 MEQ/L (21-32); CHLORIDE LEVEL 104 MEQ/L (98-107); CREATININE FOR GFR 0.68 MG/DL (0.55-1.02); GLOMERULAR FILTRATION RATE > 60.0 (>58); GLUCOSE, FASTING 88 MG/DL (70-105); POTASSIUM SERUM 3.4 MEQ/L (3.5-5.1); SODIUM LEVEL 141 MEQ/L (136-145); TOTAL PROTEIN 7.2 GM/DL (6.4-8.2)
--- NOTE | 2017-03-29 11:45 | REP ---
Duplex extremity venous ultrasound: Bilateral lower extremities. History: Calf pain. Pleuritic chest pain. Findings: The deep veins are anechoic and fully compressible from the groin to the popliteal fossa in the right and left lower extremity. Color flow imaging is homogeneous. Spectral Doppler interrogation demonstrates intact respiratory variation in flow and normal manual augmentation of flow. There is no evidence of deep vein thrombosis. Impression: Negative bilateral lower extremity duplex venous ultrasound. No evidence of deep vein thrombosis. Signed by Nic Wise MD 03/29/2017 11:37 A
[2017-03-29] MEDS ORDERED: ISOVUE-370 76% 100ML VIAL (Q9967) As Ordered ONE ×2 (12:06→12:45)
[2017-03-29] MEDS ORDERED: IBUPROFEN 800 MG TAB PO ONE (13:30)
[2017-03-29] MEDS ORDERED: ZANA4TAB PO ×2 (13:45→13:57)
--- NOTE | 2017-03-29 13:53 | REP ---
Portable chest x-ray: Single AP view. History: Line placement. Comparison chest x-ray 03/29/2017 at 9:54 a.m. Findings: A right internal jugular venous catheter is seen with its tip in the expected location of the superior vena cava. No pneumothorax is seen. There is however evidence of a right apical infiltrate suggesting pneumonia. This may be cavitary. It is new from the February 12, 2016 prior chest x-ray and was partially obscured by EKG electrode clamp on the earlier chest x-ray today. Heart is not enlarged. Lung alexandre are otherwise clear. Impression: New irregular density in the right apex. Infiltrate versus cavitary lesion. Right internal jugular venous line with its tip in the expected location of the superior vena cava. No evidence of pneumothorax. Signed by Nic Wise MD 03/29/2017 03:13 P
[2017-03-29] MEDS ORDERED: ALBU17IN2 INH (13:57)
[2017-03-29] MEDS ORDERED: ADV250INH INH (13:57)
[2017-03-29] MEDS ORDERED: MULT1TAB10 PO (13:57)
[2017-03-29] MEDS ORDERED: OXYC-517 PO (13:57)
[2017-03-29] MEDS ORDERED: AZITHROMYCIN INJ 500 MG, VIAL MATE ADAPTER 1 EACH in D5W 250 ML IV ONE (14:30)
[2017-03-29] MEDS ORDERED: cefTRIAXone SOD 1 GM in D5W MINI-BAG PLUS 50 ML IV ONE (14:30)
--- NOTE | 2017-03-29 14:35 | REP ---
CT pulmonary angiogram: With IV contrast. History: Question pulmonary embolism. Chest pain. Comparison studies: Comparison chest CT study is from January 05, 2009. Contrast dose: 100 cc's of Isovue [address] technique: Helical scanning is acquired and overlapping 1.5 mm and contiguous 3 mm axial images are reformatted. In addition, a 3-D work station is deployed to generate thick slab maximum intensity projection images in sagittal and coronal imaging projections. CT pulmonary angiographic findings: There is good opacification of the pulmonary arterial tree and there is no CT evidence of pulmonary embolism. The thoracic aorta enhances homogeneously and is normal in caliber and contrast. There is no evidence of pleural or pericardial effusion. There is air in an otherwise unremarkable esophagus. The patient is status post gastric bypass surgery and cholecystectomy. The visualized upper abdominal structures are otherwise unremarkable. No pleural or pericardial effusion is seen. There are partially calcified granulomatous mediastinal lymph nodes and there are multiple pulmonary calcified granuloma in the lung alexandre. The lung alxeandre also demonstrate an area of consolidation in the right upper lobe spanning approximately 5 cm consistent with pneumonia. There is minimal linear plate-like atelectasis in the left lower lobe posteriorly. No other significant pulmonary finding is seen. Mediastinal lymph nodes and the granulomatous calcifications are unchanged from the 2009 prior study. Maximal intensity projection images show no vessel cutoff or filling defect. There are degenerative disc changes in the thoracic spine. No bony destructive lesion is seen. Impression: 1. No CT evidence of pulmonary embolus. 2. Right internal jugular central line in the superior vena cava. 3. Old granulomatous disease. 4. Right upper lobe infiltrate consistent with pneumonia. Signed by Nic Wise MD 03/29/2017 03:14 P
--- NOTE | 2017-03-29 14:38 | REP ---
CT abdomen and pelvis with IV contrast: History: Chest pain. History of gastric bypass. Comparison is made with a CT abdomen and pelvis from July 14, 2014. CT contrast dose: 100 ml of Isovue [address] findings: Preliminary digital biological sciences instructor radiograph shows clips in right upper quadrant. Bowel gas pattern shows two loops of air-filled borderline caliber small bowel in the central abdomen. The liver and the spleen are normal in size, homogeneous in texture. No pancreatic abnormality is observed. Gallbladder surgically absent. The patient is status post gastric bypass procedure. There is a small benign right adrenal nodule consistent with myelolipoma. This contains macroscopic fat and measures 2.1 x 1.5 x 1.1 cm. It is very slightly larger than on the July 2014 study. Small and large intestinal bowel loops are normal in appearance. There are surgical clips adjacent to the right colon. I do not see the appendix however there is no inflammatory change in the area of the cecum. The uterus is tipped somewhat to the right. There is a small cyst in the left ovary measuring 1.8 cm in diameter. The kidneys enhance symmetrically. There is an intrarenal calculus in the upper pole on the left measuring 2-3 mm in diameter. There is a left-sided retroaortic renal vein. No abdominal wall defect is seen. No significant bony abnormality is noted. The left hip has been replaced. Impression: 1. Status post gastric bypass and cholecystectomy. 2. Postsurgical changes in the region of the right colon. Appendix not visualized but no inflammatory change. No acute intra-abdominal abnormality. 3. Left hip is replaced. 4. Nonobstructive intrarenal 3 mm calculus upper pole left kidney. Signed by Nic Wise MD 03/29/2017 03:14 P
[2017-03-29] MEDS ORDERED: ACETAMINOPHEN TAB 650MG DOSE (2X325MG) PO PRN (15:00)
[2017-03-29] MEDS ORDERED: BISACODYL 5 MG TAB PO PRN (15:00)
[2017-03-29] MEDS ORDERED: IPRATROPIUM 0.5MG/ALBUTEROL 2.5MG INH SOL UD 3ML (DUONEB)(J7620) NEB PRN (15:00)
[2017-03-29] MEDS ORDERED: ONDANSETRON 4 MG ORAL DISINTEGRATING TAB (S0181) PO PRN (15:00)
[2017-03-29] MEDS ORDERED: ONDANSETRON 4MG/2ML VIAL (J2405) IV PRN (15:00)
--- NOTE | 2017-03-29 15:14 | HPEPDOC ---
General Date of Admission 03/29/17 Attending Physician: MISBAH HOLLEY MD Chief Complaint The patient is a 46-year-old female admitted with a reason for visit of Chest Pain. History of Present Illness 46-year-old female with past medical history of hypertension, asthma, gastric bypass surgery in June 2016, diet controlled diabetes mellitus, recent left hip replacement in [place] one month ago, and chronic pain secondary to lumbar disc disease with radiculopathy presented to the ER with a chief complaint of right-sided chest pain over the last 24 hours. The patient states that she woke up this morning and started to feel chest pain upon deep inspiration. In addition, the patient notes that the pain is worse upon taking a deep breath. She denies any associated shortness of breath, cough, or palpitations. She does note having some subjective fevers during this time. She denies any complaints of abdominal pain, nausea, vomiting, or any diarrhea. In the ER, an EKG revealed normal sinus rhythm, and initial troponin was negative. A CT angiogram of the chest was ordered and was negative for pulmonary embolism, however did note a right upper lobe infiltrate consistent with pneumonia. At this time, the patient will be admitted under the hospitalist service for further evaluation and management. Home Medications Scheduled (Dexilant) 60 Mg Cap, 60 MG PO DAILY, (Reported) Multivitamins (Multivitamin Adults) 1 Tab Tab, 1 TAB PO DAILY, (Reported) Salmeterol/Fluticasone (Advair Diskus 250-50 Mcg/Dose) 14 Puff/Inhaler Aerp, 1 PUFF INH BID, (Reported) Scheduled PRN Acetaminophen/Hydrocodone (Hydrocodone/Acetaminophen 5-325 mg) 1 Tab Tab, 10- 325 MG PO Q4H PRN for pain, (Reported) Albuterol Sulfate (Proventil Hfa) 167 Puff/6.7 Gm Aers, 2 PUFFS INH DAILY PRN for SHORTNESS OF BREATH, (Reported) Ondansetron (Ondansetron Odt) 4 Mg Tab, 4 MG PO BID PRN for NAUSEA, (Reported) Oxycodone HCl (Oxycodone HCl) 5 Mg Tab, 1-2 TABS PO Q4H PRN for PAIN, (Reported) Tizanidine Hydrochloride (Zanaflex) 4 Mg Tab, 4 MG PO QHS PRN for MUSCLE SPASMS, (Reported) PT TOOK HALF TAB AT 0400- 03/29 Allergies Coded Allergies: Quinolones (Verified Allergy, Unknown, HIVES, 01/18/13) Past Medical History Medical History As noted in HPI. Surgical History Right knee scope, left hip replacement, bowel resection, gastric bypass surgery Family History Significant Family History: No pertinent family hx Social History * Smoker: Denies Alcohol: Denies Drugs: denies Review of Symptoms Other systems 10 point review of systems negative unless otherwise specified in HPI. Physical Examination General Exam: Positive: Alert, Cooperative, No Acute Distress ENT Exam: Positive: Atraumatic, Mucous membr. moist/pink Neck Exam: Negative: JVD Chest Exam: Positive: Diminished, Negative: Rales, Rhonchi, Wheezing Heart Exam: Positive: Rate Normal, Normal S1, Normal S2 Telemetry: Positive: Sinus Abdomen Exam: Positive: Soft, Negative: Tenderness Extremity Exam: Negative: Tenderness, Swelling Psych Exam: Positive: Oriented x 3 Vital Signs Vital Signs Date Time Temp Pulse Resp B/P (MAP) Pulse Ox O2 Delivery O2 Flow Rate FiO2 03/29/17 14:08 101.2 03/29/17 14:00 18 03/29/17 13:57 78 98 Room Air Laboratory Data Labs 24H Laboratory Tests 2 03/29/17 10:00: White Blood Count 9.6, Red Blood Count 5.21, Hemoglobin 14.0, Hematocrit 44.3, Mean Corpuscular Volume 85.1, Mean Corpuscular Hemoglobin 26.8L, Mean Corpuscular Hemoglobin Concent 31.5L, Red Cell Distribution Width 14.1, Platelet Count 229, Neutrophils (%) (Auto) 82.4H, Lymphocytes (%) (Auto) 12.8L, Monocytes (%) (Auto) 2.2, Eosinophils (%) (Auto) 2.2, Basophils (%) (Auto) 0.3, Neutrophils # (Auto) 8.0H, Lymphocytes # (Auto) 1.2L, Monocytes # (Auto) 0.2, Eosinophils # (Auto) 0.2, Basophils # (Auto) 0.0, Large Unclassified Cells % 0.4 , Large Unclassified Cells # 0.0, Prothrombin Time 14.2, Prothromb Time International Ratio 1.09, Activated Partial Thromboplast Time 22.1L, D-Dimer, Quantitative 1642.4H, Anion Gap 7L, Glomerular Filtration Rate > 60.0, Calcium Level 8.8, Aspartate Amino Transf (AST/SGOT) 21, Alanine Aminotransferase (ALT/ SGPT) 30, Alkaline Phosphatase 139H, Total Bilirubin 0.5, Direct Bilirubin 0.2, Total Creatine Kinase 76, Creatine Kinase MB 1.0, Creatine Kinase MB Relative Index 1.31, Troponin I < 0.02, Total Protein 7.2, Albumin 3.9, Albumin/Globulin Ratio 1.18, Lipase 141, Thyroid Stimulating Hormone (TSH) 1.570, Free Thyroxine 1.00 03/29/17 13:28: Lactic Acid Level 0.8 03/29/17 14:34: Urine Appearance CLEAR, Urine Color STRAW, Urine pH 6.0, Urine Specific [place] 1.021, Urine Protein NEGATIVE, Urine Glucose (UA) NEGATIVE, Urine Ketones TRACEH , Urine Urobilinogen 0.2, Urine Bilirubin NEGATIVE, Urine Leukocyte Esterase NEGATIVE, Urine Blood NEGATIVE, Urine Nitrite NEGATIVE, Urine WBC (Auto) 0, Urine RBC (Auto) 0, Urine Hyaline Casts (Auto) 0, Urine Bacteria (Auto) NEGATIVE , Urine Squamous Epithelial Cells 0, Urine Sperm (Auto) CBC/BMP Laboratory Tests 03/29/17 10:00 Red Blood Count 5.21, Mean Corpuscular Volume 85.1, Mean Corpuscular Hemoglobin 26.8 L, Mean Corpuscular Hemoglobin Concent 31.5 L, Red Cell Distribution Width 14.1, Neutrophils (%) (Auto) 82.4 H, Lymphocytes (%) (Auto) 12.8 L, Monocytes (% ) (Auto) 2.2, Eosinophils (%) (Auto) 2.2, Basophils (%) (Auto) 0.3, Neutrophils # (Auto) 8.0 H, Lymphocytes # (Auto) 1.2 L, Monocytes # (Auto) 0.2, Eosinophils # (Auto) 0.2, Basophils # (Auto) 0.0 Microbiology Microbiology 03/29/17 Blood Culture, Received Pending 03/29/17 Influenza Virus Type A Antigen - Final, Complete 03/29/17 Influenza Virus Type B Antigen - Final, Complete 03/29/17 Urine Culture, Received Pending Plan / VTE VTE Prophylaxis Ordered?: Yes Plan Plan Right upper lobe pneumonia We will admit the patient to med/surge unit Blood cultures, sputum culture ordered White blood cell count, lactic acid levels within normal limits We will start the patient on Rocephin and azithromycin We will continue to monitor the patient's respiratory status Chronic pain secondary to lumbar disc disease with radiculopathy We will continue the patient on her current pain regimen Follows with Dr. De Jesus as an outpatient Asthma, stable Continue Advair, albuterol when necessary Gastric bypass surgery in June 2016 Continue multivitamin Diet controlled diabetes mellitus We'll continue to monitor the patient's blood sugar levels Recent left hip replacement in [place] one month ago DVT prophylaxis Lovenox SC Disposition-the patient will be admitted under the service of Dr. Holley, who will begin to follow the patient on 03/30/17 at 7 AM. DALILA LECHUGA MD Mar 29, 2017 15:14
[2017-03-29] MEDS ORDERED: POTASSIUM CHLORIDE 10 MEQ SR TABLET PO ONE (16:00)
[2017-03-29] MEDS: NORCO, ANEXSIA 5/325MG TABLET (HYDROcodone/ACETAMINOPHEN) PO PRN ×2 (16:08→20:43)
[2017-03-29] MEDS: oxyCODONE 5MG TAB PO PRN ×2 (16:10→20:43)
[2017-03-29 16:45] VITALS: BP 138/85
[2017-03-29] MEDS ORDERED: SODIUM CHLORIDE 0.9% INJ 10 ML SYR IV PRN (18:45)
[2017-03-29] MEDS: ADVAIR DISKUS 250/50 INH PWD INH SCH (19:14)
[2017-03-29] MEDS: tiZANidine 4 MG TAB PO PRN (20:43)
[2017-03-29 22:00] VITALS: BP 119/71
[2017-03-29] MEDS: SODIUM CHLORIDE 0.9% INJ 10 ML SYR IV SCH (23:32)
[2017-03-30] MEDS: NORCO, ANEXSIA 5/325MG TABLET (HYDROcodone/ACETAMINOPHEN) PO PRN ×2 (02:00→06:04)
[2017-03-30] MEDS: oxyCODONE 5MG TAB PO PRN ×3 (02:02→21:43)
[2017-03-30] MEDS: SODIUM CHLORIDE 0.9% INJ 10 ML SYR IV SCH ×3 (05:40→21:34)
[2017-03-30 06:00] VITALS: BP 109/60
[2017-03-30 06:05] LABS: MEAN CORPUSCULAR HGB CONC 33.1 g/dl (32.0-36.5); MEAN CORPUSCULAR VOLUME 84.6 fl (80.0-96.0); RED CELL DISTRIBUTION WIDTH 14.2 % (11.5-14.5)
[2017-03-30 06:50] LABS: ANION GAP 5 MEQ/L (8-16); BLOOD UREA NITROGEN 7 MG/DL (7-18); CARBON DIOXIDE LEVEL 29 MEQ/L (21-32); CHLORIDE LEVEL 104 MEQ/L (98-107); CREATININE FOR GFR 0.51 MG/DL (0.55-1.02); GLOMERULAR FILTRATION RATE > 60.0 (>58); GLUCOSE, FASTING 88 MG/DL (70-105); MAGNESIUM LEVEL 1.7 MG/DL (1.8-2.4); POTASSIUM SERUM 3.6 MEQ/L (3.5-5.1); SODIUM LEVEL 138 MEQ/L (136-145)
[2017-03-30] MEDS: ADVAIR DISKUS 250/50 INH PWD INH SCH ×2 (07:53→19:34)
[2017-03-30] MEDS: AZITHROMYCIN 250 MG TAB PO SCH (08:19)
[2017-03-30] MEDS: MULTIVITAMINS/MINERALS THERAP 1 TAB PO SCH (08:19)
[2017-03-30] MEDS: ENOXAPARIN 40 MG/0.4 ML SYRINGE (J1650) SC SCH (08:20)
[2017-03-30] MEDS ORDERED: ANEXSIA, NORCO 7.5MG/325MG TABLET(HYDROCODONE/APAP) PO ONE (09:30)
[2017-03-30] MEDS ORDERED: NALOXONE INJ 0.4 MG/1 ML VIAL (J2310) IV PRN (09:30)
[2017-03-30 14:00] VITALS: BP 138/64
[2017-03-30] MEDS ORDERED: MAG SULF 1GM/100ML (MAG RUN) 1 GM in APPROPRIATE DILUENT 1 EA IV ONE (14:30)
--- NOTE | 2017-03-30 14:45 | IPN ---
DATE OF SERVICE: 03/30/2017 The patient is seen and examined at the bedside. Chart has been reviewed. Yesterday, the patient had significant difficulty with poor intravenous (IV) access and a right internal jugular vein was placed. She had a maximum temperature (Tmax) of 101.2. Still complains of a dry cough. No shortness of breath. Able to ambulate 4-5 times around the nurses' floor without much difficulty. No chills. Still complains of right-sided chest pain with no radiation, improved with current medications. Requesting for her [place] 10 mg two tablets to be resumed every 4-6 hours. Vital signs: Temperature Tmax of 101.2, current temperature is 97.3, pulse 69, respiratory rate 16, blood pressure 109/60. Generally, awake, alert, oriented times three. Right internal jugular vein triple-lumen has been noted. No jugular venous distention, thyromegaly, cervical lymphadenopathy. Moist mucous membranes. Pupils round, reactive to light and accommodation. Extraocular muscles are intact. Anicteric sclerae. No use of respiratory accessory muscles. Lungs diminished with very fine crackles at the upper lobe. Heart: S1, S2, sinus rhythm. No murmurs, rubs, or gallops. Abdomen: Is soft, nontender, nondistended. Positive bowel sounds. Extremities: No clubbing, cyanosis, or pitting edema. White count 8, hemoglobin 10, hematocrit 32, platelet count 162. Sodium 138, potassium 3.6, chloride 104, bicarbonate 29, BUN 7, creatinine 0.5, glucose 88, magnesium of 1.7. 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 At this time, the patient was found to have a right upper lobe pneumonia, treated with intravenous antibiotics. Due to poor IV access, the patient received a triple lumen in the right internal jugular vein. Tmax was 101.2. The patient is improved, potentially medically stable for discharge in the morning. CURRENT ISSUES: 1. Right upper lobe pneumonia. Awaiting methicillin-resistant Staphylococcus aureus (MRSA) screen. Currently, on community-acquired coverage, antibiotics with ceftriaxone and azithromycin. 2. Chronic back pain. Requesting her home dose of [place] 10 mg two tablets every 4-6 hours. Consult pain management. 3. Recent history of left hip replacement. Continue with rehabilitation as previously prescribed. [place] as needed for pain. The patient has been off of anticoagulation. No pulmonary embolism (PE) on examination. 4. Hypertension. Stable. 5. Diet controlled diabetes. 6. Deep venous thrombosis (DVT) prophylaxis. With Lovenox subcutaneously. DISPOSITION: May discharge in the morning if no issues overnight.
[2017-03-30] MEDS: ANEXSIA, NORCO 7.5MG/325MG TABLET(HYDROCODONE/APAP) PO PRN ×2 (15:00→19:06)
[2017-03-30] MEDS ORDERED: cefTRIAXone SOD 1 GM in D5W MINI-BAG PLUS 50 ML IV SCH (15:00)
[2017-03-30 21:00] VITALS: BP 126/71
[2017-03-30 22:00] VITALS: BP 126/71
--- NOTE | 2017-03-30 22:50 | REPUSA ---
Clinical history: chest pain. Comparison: None. Findings: The right internal jugular central venous catheter is within the superior vena cava. The me diastinum and cardiac silhouette are within normal limits. The lungs are clear. No pleural effusion o r pneumothorax is seen. The osseous structures and soft tissues are unremarkable. Impression: No acute disease.
[2017-03-30] MEDS: tiZANidine 4 MG TAB PO PRN (22:57)
[2017-03-31] MEDS: ANEXSIA, NORCO 7.5MG/325MG TABLET(HYDROCODONE/APAP) PO PRN ×2 (02:06→08:55)
[2017-03-31] MEDS: SODIUM CHLORIDE 0.9% INJ 10 ML SYR IV SCH (05:02)
[2017-03-31 05:19] LABS: MEAN CORPUSCULAR HGB CONC 33.1 g/dl (32.0-36.5); MEAN CORPUSCULAR VOLUME 84.7 fl (80.0-96.0); RED CELL DISTRIBUTION WIDTH 14.4 % (11.5-14.5); WHITE BLOOD COUNT 6.8 K/mm3 (4.0-10.0)
[2017-03-31 05:48] LABS: ANION GAP 4 MEQ/L (8-16); BLOOD UREA NITROGEN 6 MG/DL (7-18); CALCIUM LEVEL 8.1 MG/DL (8.5-10.1); CARBON DIOXIDE LEVEL 32 MEQ/L (21-32); CHLORIDE LEVEL 106 MEQ/L (98-107); CREATININE FOR GFR 0.54 MG/DL (0.55-1.02); GLOMERULAR FILTRATION RATE > 60.0 (>58); GLUCOSE, FASTING 93 MG/DL (70-105); POTASSIUM SERUM 3.6 MEQ/L (3.5-5.1); SODIUM LEVEL 142 MEQ/L (136-145)
[2017-03-31 06:00] VITALS: BP 124/66
[2017-03-31] MEDS: ADVAIR DISKUS 250/50 INH PWD INH SCH (08:36)
--- NOTE | 2017-03-31 08:46 | ECGEPIP ---
Stationary ECG Study [facility] - ED Test Date: 2017-03-29 Pat Name: LJ COKER Department: Room: - Gender: F Incident Engineer: rn : [id number] Requested By: Alexis Harman Order Number: [id number] Reading MD: Erin Khan Measurements Intervals [place] Rate: 88 P: 35 WI: 164 QRS: 18 QRSD: 106 T: 19 QT: 309 QTc: 375 Interpretive Statements SINUS RHYTHM INCREASED RATE 02/12/16 Electronically Signed On 03-31-2017 8:46:20 EDT by Erin Khan
[2017-03-31] MEDS: AZITHROMYCIN 250 MG TAB PO SCH (08:53)
[2017-03-31] MEDS: ENOXAPARIN 40 MG/0.4 ML SYRINGE (J1650) SC SCH (08:53)
[2017-03-31] MEDS: MULTIVITAMINS/MINERALS THERAP 1 TAB PO SCH (08:55)
[2017-03-31] MEDS ORDERED: CEFD1CAP8 PO (10:24)
[2017-03-31] MEDS ORDERED: AZIT500T2 PO (10:24)
--- NOTE | 2017-03-31 18:49 | DSES ---
DATE OF ADMISSION: 03/29/2017 DATE OF DISCHARGE: 03/31/2017 ATTENDING PHYSICIAN: Dr. Miriam Fontenot and Zuly Holley. PRIMARY CARE PROVIDER: Unknown. REFERRING PHYSICIAN: None CONSULTING PHYSICIANS: None. CONDITION ON DISCHARGE: Stable. FINAL DIAGNOSIS: Community acquired pneumonia. PROCEDURES: None. HISTORY OF PRESENT ILLNESS: The patient is a 46-year-old female with a past medical history hypertension, asthma, gastric bypass surgery in 06/2016, diet controlled diabetes mellitus, recent left hip replacement in [place] one month prior and chronic pain secondary to lumbar disc disease with radiculopathy who presented to the emergency room with complaints of right sided chest pain over her lower aspect of her chest over the last 24 hours. Patient noted that the pain was worsening upon deep inspiration. Upon imaging in the emergency room Patient was found to have a right lower quadrant pneumonia. Patient had CTA which was negative for any pulmonary embolism. Patient was admitted for community acquired pneumonia and put on medical surgical floor. HOSPITAL COURSE: 1. Right upper lobe pneumonia. Patient denied any shortness of breath or cough. Patient did note worsening chest pain with deep inspiration. CTA was performed which was negative for pulmonary embolism but revealed that there was a consolidation in the right upper lobe consistent with pneumonia. Patient was started on ceftriaxone and azithromycin. Patient never had any leukocytosis initially and remained afebrile throughout her hospital course. Patient noted that her symptoms have improved throughout her hospital course and patient had been discharged with cefdinir and azithromycin for completion of antibiotics. Patient has been advised to followup with her primary care provider within the next 7 days. 2. Chronic back pain. Continue with home medication for pain control. 3. History of recent left hip replacement. Will continue with rehabilitation Patient is currently off of anticoagulation as it has been greater than 30 days. 4. Hypertension. Blood pressure rates are well controlled. We will continue with home medication. 5. Diet controlled diabetes. 6. Deep venous thrombosis (DVT) prophylaxis. Patient has been on Lovenox subcutaneously. DISCHARGE MEDICATIONS: The patient has been discharged home with the following medication list: - azithromycin 500 mg by mouth daily for the next 7 days - cefdinir 300 mg by mouth twice a day for the 7 days - Percocet 1 tab by mouth 4 hours as needed for pain - albuterol 2 puffs inhaled daily as needed for shortness of breath - Dexilant 60 mg by mouth daily - multivitamins 1 tab by mouth daily - ondansetron 4 mg by mouth twice a day as needed nausea - oxycodone HCL 5 mg 1-2 tabs by mouth every 4 hours as needed for pain - Advair 250/50 1 puff inhaled twice a day - tizanidine 4 mg by mouth nightly as needed for muscle spasm DISCHARGE INSTRUCTIONS: Patient has been advised to followup with her primary care provider within the next 7 days. She has been advised to remain complaint with treatment plan and medication and return to the emergency room if the experiences any problems. TIME SPENT ON DISCHARGE: 35 minutes.
[2017-04-02 00:06] LABS: ORGANISM ID Not indicated. (.); SPECIMEN SOURCE Urine (.)
== END 2017-03-31 11:55 | disposition home or self-care (01) ==
LOC: M ED 11:13 → M ED INP 14:46 → M MSPAV 16:30
PROVIDERS: ADMIT Internal Medicine; ATTEND Internal Medicine
DX: J18.9 Pneumonia, unspecified organism (principal); I10 Essential (primary) hypertension; J45.909 Unspecified asthma, uncomplicated; Z98.84 Bariatric surgery status; E11.9 Type 2 diabetes mellitus without complications; Z79.899 Other long term (current) drug therapy; M54.5 Low back pain
CPT/HCPCS: 71010; 71275; 74177; 80048; 80076; 81001; 82550; 82553; 83605; 83690; 83735; 84439; 84443; 85025; 85027; 85379; 85610; 85730; 87040; 87081; 87086; 87449; 87804; 87880; 87899; 93005; 93041; 93970; 94640; 94664; 94760; 96365; 96366; 96367; 96368; 96372; 96374; 96375; 96376; 99285; J0456; J0696; J1650; J2405; J3475; Q9967

== ENCOUNTER → 2017-04-10 | Outpatient (RCR) | payer BC ==
[~2017-04-10] MED LIST changes: +ADV250INH INH; +ALBU17IN2 INH; +AZIT500T2 PO; +CEFD1CAP8 PO; +MULT1TAB10 PO; +OXYC-517 PO; +ZANA4TAB PO
== END ==
LOC: M PT 03-12 13:21
PROVIDERS: ATTEND Orthopaedic Surgery
DX: Z51.89 Encounter for other specified aftercare (principal); Z96.642 Presence of left artificial hip joint

== ENCOUNTER → 2017-04-21 | Outpatient (CLI) | payer BC ==
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
== END ==
LOC: M PAIN 10:00
PROVIDERS: ATTEND Nurse Practitioner Family
DX: M46.1 Sacroiliitis, not elsewhere classified (principal); M54.5 Low back pain; G89.29 Other chronic pain; Z79.891 Long term (current) use of opiate analgesic; Z79.899 Other long term (current) drug therapy; Z88.1 Allergy status to other antibiotic agents; Z88.8 Allergy status to other drugs, medicaments and biological substances

== ENCOUNTER → 2017-04-28 | Outpatient (CLI) | payer BC ==
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
== END ==
LOC: M PAIN 15:40
PROVIDERS: ATTEND Anesthesiology
DX: M46.1 Sacroiliitis, not elsewhere classified (principal); M47.816 Spondylosis without myelopathy or radiculopathy, lumbar region; M47.817 Spondylosis without myelopathy or radiculopathy, lumbosacral region; G89.29 Other chronic pain; Z79.891 Long term (current) use of opiate analgesic; Z79.899 Other long term (current) drug therapy

== ENCOUNTER 2017-05-08 11:39 | Outpatient (RCR) | payer BC | END 2017-05-11 | disposition home or self-care (01) | LOC: M PT 11:39 | PROVIDERS: ATTEND Orthopaedic Surgery | DX: Z51.89 Encounter for other specified aftercare (principal); Z96.642 Presence of left artificial hip joint ==

== ENCOUNTER → 2017-05-13 | Outpatient (CLI) | payer BC ==
[~2017-05-13] MED LIST changes: +BUPIVACAINE HCL 0.25% 30 ML VIAL As Ordered ONE; +ISOVUE-M 300 61% 15ML VIAL (Q9967) As Ordered ONE; +LIDOCAINE 1% SDV INJ 30 ML VIAL As Ordered ONE
--- NOTE | 2017-05-13 16:59 | REP ---
FACET BLOCK: The images were reviewed with Dr. Chamberlain. The patient has a history of back pain. The portable C-Arm is provided in the OR for Dr. Juan for fluoroscopic guidance. Two intraoperative fluoroscopic spot films were obtained using last image hold technology for needle placement verification for right lumbar facet injection. The films are on the PACs system and are available for review. 22 seconds of fluoroscopy time was utilized for this procedure. Reviewed by ELVER Tadeo 05/14/2017 05:43 PEdited and Signed by Leandro Chamberlain MD 05/14/2017 06:48 P
--- NOTE | 2017-05-26 00:29 | ECWPNPC ---
PATIENT NAME: LJ COKER : 1970 GENDER: FEMALE VISIT DATE: 05/13/2017 DISCHARGE DATE: 05/13/17 1337 VISIT LOCKED DATE TIME: PHYSICIAN: BISI STOKES RESOURCE: IBSI STOKES REASON FOR APPOINTMENT 1. LFBD#2 HISTORY OF PRESENT ILLNESS HISTORY OF PRESENT ILLNESS: PAIN THE PATIENT DESCRIBES THE PAIN... FALL RISK SCREENING: SCREENING :NO FALLS IN THE PAST YEAR CURRENT MEDICATIONS TAKING ADVAIR DISKUS 250-50 MCG/DOSE MISCELLANEOUS 1 INHALATION EVERY 12 HRS, NOTES: 05-13-17799 TAKING ALBUTEROL SULFATE HFA 108 (90 BASE) MCG/ACT AEROSOL SOLUTION 2 PUFFS INHALATION EVERY 4 HOURS NEEDED, NOTES: NOT LATELY TAKING DEXILANT 60 MG CAPSULE DELAYED RELEASE 1 CAPSULE ORALLY ONCE A DAY, NOTES: 05-10-17 TAKING NALOXEGOL OXALATE 25 MG TABLET 1 TABLET IN THE MORNING ORALLY ONCE A DAY NEEDED, NOTES: LONG TIME TAKING MULTIVITAMIN GUMMIES ADULT - TABLET CHEWABLE 2 TABLETS ORALLY DAILY, NOTES: 899 TAKING BIOTIN 5000 5 MG CAPSULE 1 CAPSULE ORALLY ONCE A DAY (UNSURE OF DOSE), NOTES: BEEN A WHILE TAKING VITAMIN B-12 1000 MCG TABLET SUBLINGUAL 3 TABS SUBLINGUAL ONCE A DAY, NOTES: 03-13-17899 TAKING CARAFATE 1 GM TABLET 1 TABLET ON AN EMPTY STOMACH ORALLY FOUR TIMES A DAY NEEDED, NOTES: NOT TAKING TAKING FOLIC ACID 1 MG TABLET 1 TABLET ORALLY ONCE A DAY, NOTES: 03-13-17 TAKING TIZANIDINE HCL 4 MG TABLET 1-2 ORALLY QHS PRN FOR SPASMS AND PAIN, NOTES: 05-12-172099 TAKING NORCO 10-325 MG TABLET 1 TABLET NEEDED ORALLY EVERY 6 HRS MDD4, NOTES: 05-12-172099 NOT-TAKING AMOXICILLIN 500 MG CAPSULE 1 CAPSULE ORALLY PRIOR TO DENTAL WORK NOT-TAKING HYDROCHLOROTHIAZIDE 25 MG TABLET 1 TABLET ORALLY ONCE A DAY NOT-TAKING DAPAGLIFLOZIN PROPANEDIOL 10 MG TABLET 1 TABLET ORALLY ONCE A DAY NOT-TAKING ONDANSETRON 4 MG TABLET DISPERSIBLE 1 TABLET ON THE TONGUE AND ALLOW TO DISSOLVE ORALLY EVERY 8 HRS NOT-TAKING VICTOZA ___ SOLUTION PEN-INJECTOR 1.8 MG SUBCUTANEOUS ONCE A DAY NOT-TAKING LISINOPRIL 20 MG TABLET 1 TABLET ORALLY ONCE A DAY NOT-TAKING VITAMIN D (ERGOCALCIFEROL) 62735 UNIT CAPSULE 1 CAPSULE ORALLY WEEKLY NOT-TAKING CRESTOR _ TABLET 1 TABLET ORALLY ONCE A DAY, NOTES: LAST NIGHT NOT-TAKING PREVACID 30 MG CAPSULE DELAYED RELEASE 1 CAPSULE BEFORE A MEAL ORALLY ONCE A DAY MEDICATION LIST REVIEWED AND RECONCILED WITH THE PATIENT PAST MEDICAL HISTORY ASTHMA HYPERTENSION DIABETES MELLITUS GASTROPARESIS LUMBAR DISC DISORDER WITH RADICULOPATHY LUMBAR RADICULOPATHY LUMBAR SPINAL STENOSIS GASTRIC BYPASS ALLERGIES CIPRO: HIVES: ALLERGY NSAIDSP: CANT USE GASTRIC BYPASS REVIEW OF SYSTEMS REVIEWED BY: PROVIDER: . CONSTITUTIONAL: ANY CHANGE IN YOUR MEDICAL CONDITION? NO . CHILLS NO . FEVER NO . INFECTION: DO YOU HAVE NEW INFECTIONS? NO . DO YOU HAVE HISTORY OF MRSA? NO . MUSCULOSKELETAL: ANY NEW PATTERNS OF PAIN OR NUMBNESS? NO . GASTROENTEROLOGY: ANY NEW CHANGE IN BOWEL CONTROL? NO . GENITOURINARY: ANY NEW CHANGE IN BLADDER CONTROL? NO . IS THERE A CHANCE YOU COULD BE ? NO . HEMATOLOGY/LYMPH: DO YOU TAKE ANY BLOOD THINNERS? (FOR EXAMPLE- COUMADIN, PLAVIX, AGGRENOX, PLATEL, PRADAXA, OR XARELTO) NO . WHEN WAS YOUR LAST DOSE? DATE: TIME: . NEUROLOGY: HAVE YOU FALLEN IN THE PAST 6 MONTHS? NO . ANY NEW EXTREMITY NUMBNESS OR WEAKNESS? NO . CARDIOLOGY: DO YOU HAVE A PACEMAKER OR DEFIBRILLATOR? NO . RESPIRATORY: HAVE YOU BEEN SICK IN THE PAST WEEK? NO . FEVER NO . FLU LIKE SYMPTOMS? NO . COUGH NO . INTEGUMENTARY: DO YOU HAVE ANY RASHES OR OPEN SORES? NO . ALLERGIC/IMMUNO: ARE YOU ALLERGIC TO SHELLFISH OR IV DYE? NO . ANY NEW ALLERGIES? NO . PSYCHIATRIC: DO YOU HAVE THOUGHTS OF HURTING YOURSELF OR SOMEONE ELSE? NO . ARE YOU ABUSED, NEGLECTED, OR IN AN UNSAFE ENVIRONMENT? NO . ENDOCRINOLOGY: ARE YOU DIABETIC? NO . OTHER: DO YOU NEED ANY PRESCRIPTIONS? NO . IF YES, PLEASE LIST: ____ . ANY NEW PROBLEMS WITH YOUR MEDICATIONS? NO . WHEN DID YOU LAST EAT? ____ . WHEN DID YOU LAST DRINK? ____ . WHAT DID YOU LAST DRINK? ____ . NAME OF PERSON DRIVING YOU HOME? ____ . DO YOU HAVE ANY OTHER QUESTIONS OR CONCERNS NO . VITAL SIGNS WT 177 LBS, HT 67 IN, BMI 27.72 INDEX, BP 148/79 MM HG, HR 60 /MIN, RR 16 /MIN, TEMP 98.2 F, OXYGEN SAT % 98%, NA INITIALS SC 11:39, REVIEWED BY: KG. ASSESSMENTS SPONDYLOSIS WITHOUT MYELOPATHY OR RADICULOPATHY, LUMBAR REGION - M47.816 (PRIMARY) SPONDYLOSIS WITHOUT MYELOPATHY OR RADICULOPATHY, LUMBOSACRAL REGION - M47.817 TREATMENT OTHERS REFILL TIZANIDINE HCL TABLET, 4 MG, 1-2, ORALLY, QHS PRN FOR SPASMS AND PAIN, 30 DAY(S), 60, REFILLS 1, NOTES: 05-12-172099 REFILL NORCO TABLET, 10-325 MG, 1 TABLET NEEDED, ORALLY, EVERY 6 HRS MDD4, 30 DAY(S), 100, REFILLS 0, NOTES: 05-12-172099 PROCEDURES PN LUMBAR FACET BLOCK DIAGNOSTIC PRE PROCEDURE DIAGNOSIS LUMBAR SPONDYLOSIS, LUMBOSACRAL SPONDYLOSIS POST PROCEDURE DIAGNOSIS LUMBAR SPONDYLOSIS, LUMBOSACRAL SPONDYLOSIS PROCEDURE RIGHT L4-L5 AND RIGHT L5-S1 FACET BLOCK DIAGNOSTIC NUMBER [address] BISI STOKES SALES COACH NONE ANESTHESIA LOCAL PRE PROCEDURE NOTE THE PATIENT WITH HISTORY OF CHRONIC LOW BACK PAIN. I EVALUATED THE PATIENT AND REVIEWED THE CHART. I WENT OVER THE RISKS, ALTERNATIVES, AND BENEFITS ASSOCIATED WITH THIS PROCEDURE. THE PATIENT WOULD LIKE TO PROCEED AND GAVE CONSENT TO PERFORM THE PROCEDURE. AGREED WITH THE PATIENT WE ARE DOING THIS PROCEDURE TO DETERMINE IF THE PATIENT IS A CANDIDATE FOR A RADIOFREQUENCY ABLATION OF THE FACETS JOINTS. THE PATIENT DENIES UNEXPLAINABLE WEIGHT LOSS, FEVER, CHILLS, OR NEW CHANGES IN URINARY OR BOWEL CONTROL DESCRIPTION OF PROCEDURE THE PATIENT WAS BROUGHT TO THE PROCEDURE ROOM AND PLACED IN THE PRONE POSITION. THE LUMBOSACRAL AREA WAS CLEANED WITH CHLORAPREP SOLUTION AND DRAPED ASEPTICALLY. THE PROCEDURE WAS DONE UNDER STERILE CONDITIONS. I CHECKED LATERALITY AND THE LEVEL WHERE THE PROCEDURE WAS GOING TO BE PERFORMED WITH THE PATIENT AND THE SUPPORTING STAFF AT THE MOMENT OF THE TIME OUT IN THE PROCEDURE ROOM. UNDER FLUOROSCOPIC GUIDANCE, TARGETS WERE SELECTED AT THE INTERSECTION OF THE RIGHT TRANSVERSE PROCESS OF L4, L5 AND ALA OF S1 WITH ITS RESPECTIVE SUPERIOR ARTICULAR PROCESS. LIDOCAINE WAS USED TO NUMB THE SKIN AND THE SUBCUTANEOUS TISSUE BELOW IT. SPINAL NEEDLE, 22-GAUGE WAS ADVANCED UNDER FLUOROSCOPIC GUIDANCE AND FOLLOWING PATIENT FEEDBACK UNTIL THE TARGETS WERE REACHED. POSITION OF THE NEEDLES WAS VERIFIED WITH AP AND LATERAL VIEWS. AFTER PROPER POSITION OF THE NEEDLES WAS ACHIEVED, ISOVUE-M DYE 30% 0.1 ML WAS INJECTED AT EACH SITE SHOWING ADEQUATE SPREAD OF THE DYE. THEN A SOLUTION OF 0.4 ML OF BUPIVACAINE 0.25% WAS INJECTED AT EACH SITE. THERE WAS NO EVIDENCE OF BLOOD, PARESTHESIA OR CEREBROSPINAL FLUID DURING THE PROCEDURE. THE PATIENT WAS SENT TO THE RECOVERY ROOM. THE PATIENT WAS MOVING THE EXTREMITIES AND DOING WELL. THERE WAS NO COMPLICATION DURING THE PROCEDURE. FLUOROSCOPY TIME WAS 22 SECONDS POST PROCEDURE NOTE THE PATIENT WILL DOCUMENT HIS PAIN LEVEL AND RESPONSE TO THIS PROCEDURE EVERY 30 MINUTES. THE PATIENT WILL BE SEEN IN A FOLLOW UP IN THE NEXT FEW WEEKS. FURTHER DETERMINATION FOR HIS CASE WILL BE DONE AT THE NEXT VISIT. INSTRUCTIONS WERE GIVEN, QUESTIONS WERE ANSWERED, AND THE PATIENT EXPRESSED UNDERSTANDING AND AGREED WITH THE PLAN. I, UDAY ARREGUIN, DOCUMENTED THE ABOVE INFORMATION ACTING A SCRIBE FOR DR. STOKES. I HAVE REVIEWED THE ABOVE DOCUMENT, WRITTEN BY UDAY WOMACKIBJessica AND I VERIFY THAT IT IS ACCURATE DIAGNOSTIC IMAGING [facility] FACET BLOCK (PAIN)[id number] PROCEDURE CODES 16060 INJ PARAVERT F JNT L/S 1 LEV 46650 INJ PARAVERT F JNT L/S 2 LEV 6045F RADXPS IN END [id number] PXD DISPOSITION & COMMUNICATION FOLLOW UP 3 WEEKS ELECTRONICALLY SIGNED BY BISI STOKES MD ON 05/25/2017 AT 07:56 PM EDT DISCLAIMER : THIS IS A VISIT SUMMARY EXTRACTED FROM THE [employer] CHART. IT IS NOT A COPY OF THE [employer] PROGRESS NOTE. MTDD
== END ==
LOC: M PAIN 11:40
PROVIDERS: ATTEND Anesthesiology
DX: G89.29 Other chronic pain (principal); M47.816 Spondylosis without myelopathy or radiculopathy, lumbar region; M47.817 Spondylosis without myelopathy or radiculopathy, lumbosacral region; J45.909 Unspecified asthma, uncomplicated; I10 Essential (primary) hypertension; E11.9 Type 2 diabetes mellitus without complications; Z88.8 Allergy status to other drugs, medicaments and biological substances; Z88.6 Allergy status to analgesic agent; Z79.899 Other long term (current) drug therapy
CPT/HCPCS: 64493; 64494; Q9967

== ENCOUNTER → 2017-05-15 | Outpatient (CLI) | payer BC ==
[~2017-05-15] MED LIST changes: -BUPIVACAINE HCL 0.25% 30 ML VIAL As Ordered ONE; -ISOVUE-M 300 61% 15ML VIAL (Q9967) As Ordered ONE; -LIDOCAINE 1% SDV INJ 30 ML VIAL As Ordered ONE
--- NOTE | 2017-06-01 00:13 | ECWPNPC ---
PATIENT NAME: LJ COKER : 1970 GENDER: FEMALE VISIT DATE: 05/15/2017 DISCHARGE DATE: 05/15/17 1136 VISIT LOCKED DATE TIME: PHYSICIAN: BISI STOKES RESOURCE: BISI STOKES REASON FOR APPOINTMENT 1. LOW BACK PAIN HISTORY OF PRESENT ILLNESS HISTORY OF PRESENT ILLNESS: PAIN THE PATIENT DESCRIBES THE PAIN... 46 YEAR OLD FEMALE PATIENT WITH HISTORY OF CHRONIC BACK PAIN. PATIENT DESCRIBES THE PAIN ACHING AND HAVING IT ALL THE TIME WITH A PAIN SCORE OF 6/10. MRS. COKER RECEIVED A DIAGNOSTIC FACET BLOCK ON 05/13/16 AND REPORTS HAVING OVER 50% RELIEF FROM THE PAIN FOR OVER 10 HOURS. PATIENT IS CURRENTLY USING NORCO FOR THE PAIN. MRS. COKER STATES THAT ANY TYPE OF ACTIVITY INCLUDING STANDING, WALKING, AND SITTING FOR ANY LENGTH OF TIME INCREASES THE PAIN IN HER LOWER BACK. PATIENT DENIES UNEXPLAINABLE WEIGHT LOSS, FEVER, CHILLS, NEW CHANGES ON HER URINARY OR BOWEL CONTROL. FALL RISK SCREENING: SCREENING :NO FALLS IN THE PAST YEAR CURRENT MEDICATIONS TAKING ADVAIR DISKUS 250-50 MCG/DOSE MISCELLANEOUS 1 INHALATION EVERY 12 HRS TAKING ALBUTEROL SULFATE HFA 108 (90 BASE) MCG/ACT AEROSOL SOLUTION 2 PUFFS INHALATION EVERY 4 HOURS NEEDED TAKING DEXILANT 60 MG CAPSULE DELAYED RELEASE 1 CAPSULE ORALLY ONCE A DAY TAKING NALOXEGOL OXALATE 25 MG TABLET 1 TABLET IN THE MORNING ORALLY ONCE A DAY NEEDED TAKING MULTIVITAMIN GUMMIES ADULT - TABLET CHEWABLE 2 TABLETS ORALLY DAILY TAKING BIOTIN 5000 5 MG CAPSULE 1 CAPSULE ORALLY ONCE A DAY (UNSURE OF DOSE) TAKING VITAMIN B-12 1000 MCG TABLET SUBLINGUAL 3 TABS SUBLINGUAL ONCE A DAY TAKING CARAFATE 1 GM TABLET 1 TABLET ON AN EMPTY STOMACH ORALLY FOUR TIMES A DAY NEEDED TAKING FOLIC ACID 1 MG TABLET 1 TABLET ORALLY ONCE A DAY TAKING TIZANIDINE HCL 4 MG TABLET 1-2 ORALLY QHS PRN FOR SPASMS AND PAIN TAKING NORCO 10-325 MG TABLET 1 TABLET NEEDED ORALLY EVERY 6 HRS MDD4 NOT-TAKING AMOXICILLIN 500 MG CAPSULE 1 CAPSULE ORALLY PRIOR TO DENTAL WORK NOT-TAKING HYDROCHLOROTHIAZIDE 25 MG TABLET 1 TABLET ORALLY ONCE A DAY NOT-TAKING DAPAGLIFLOZIN PROPANEDIOL 10 MG TABLET 1 TABLET ORALLY ONCE A DAY NOT-TAKING ONDANSETRON 4 MG TABLET DISPERSIBLE 1 TABLET ON THE TONGUE AND ALLOW TO DISSOLVE ORALLY EVERY 8 HRS NOT-TAKING VICTOZA ___ SOLUTION PEN-INJECTOR 1.8 MG SUBCUTANEOUS ONCE A DAY NOT-TAKING LISINOPRIL 20 MG TABLET 1 TABLET ORALLY ONCE A DAY NOT-TAKING VITAMIN D (ERGOCALCIFEROL) 77753 UNIT CAPSULE 1 CAPSULE ORALLY WEEKLY NOT-TAKING CRESTOR _ TABLET 1 TABLET ORALLY ONCE A DAY, NOTES: LAST NIGHT NOT-TAKING PREVACID 30 MG CAPSULE DELAYED RELEASE 1 CAPSULE BEFORE A MEAL ORALLY ONCE A DAY MEDICATION LIST REVIEWED AND RECONCILED WITH THE PATIENT PAST MEDICAL HISTORY ASTHMA HYPERTENSION DIABETES MELLITUS GASTROPARESIS LUMBAR DISC DISORDER WITH RADICULOPATHY LUMBAR RADICULOPATHY LUMBAR SPINAL STENOSIS GASTRIC BYPASS ALLERGIES CIPRO: HIVES: ALLERGY NSAIDSP: CANT USE GASTRIC BYPASS REVIEW OF SYSTEMS REVIEWED BY: PROVIDER: BISI STOKES MD . CONSTITUTIONAL: ANY CHANGE IN YOUR MEDICAL CONDITION? NO . CHILLS NO . FEVER NO . INFECTION: DO YOU HAVE NEW INFECTIONS? NO . DO YOU HAVE HISTORY OF MRSA? NO . MUSCULOSKELETAL: ANY NEW PATTERNS OF PAIN OR NUMBNESS? NO . GASTROENTEROLOGY: ANY NEW CHANGE IN BOWEL CONTROL? NO . GENITOURINARY: ANY NEW CHANGE IN BLADDER CONTROL? NO . IS THERE A CHANCE YOU COULD BE ? NO . HEMATOLOGY/LYMPH: DO YOU TAKE ANY BLOOD THINNERS? (FOR EXAMPLE- COUMADIN, PLAVIX, AGGRENOX, PLATEL, PRADAXA, OR XARELTO) NO . WHEN WAS YOUR LAST DOSE? DATE: TIME: . NEUROLOGY: HAVE YOU FALLEN IN THE PAST 6 MONTHS? NO . ANY NEW EXTREMITY NUMBNESS OR WEAKNESS? NO . CARDIOLOGY: DO YOU HAVE A PACEMAKER OR DEFIBRILLATOR? NO . RESPIRATORY: HAVE YOU BEEN SICK IN THE PAST WEEK? NO . FEVER NO . FLU LIKE SYMPTOMS? NO . COUGH NO . INTEGUMENTARY: DO YOU HAVE ANY RASHES OR OPEN SORES? NO . ALLERGIC/IMMUNO: ARE YOU ALLERGIC TO SHELLFISH OR IV DYE? NO . ANY NEW ALLERGIES? NO . PSYCHIATRIC: DO YOU HAVE THOUGHTS OF HURTING YOURSELF OR SOMEONE ELSE? NO . ARE YOU ABUSED, NEGLECTED, OR IN AN UNSAFE ENVIRONMENT? NO . ENDOCRINOLOGY: ARE YOU DIABETIC? NO . OTHER: DO YOU NEED ANY PRESCRIPTIONS? NO . IF YES, PLEASE LIST: ____ . ANY NEW PROBLEMS WITH YOUR MEDICATIONS? NO . WHEN DID YOU LAST EAT? ____ . WHEN DID YOU LAST DRINK? ____ . WHAT DID YOU LAST DRINK? ____ . NAME OF PERSON DRIVING YOU HOME? ____ . DO YOU HAVE ANY OTHER QUESTIONS OR CONCERNS NO . VITAL SIGNS WT 180.8 LBS, HT 67 IN, BMI 28.31 INDEX, BP 156/89 MM HG, HR 62 /MIN, RR 16 /MIN, TEMP 97.7 F, OXYGEN SAT % 97, NA INITIALS MP 1107, REVIEWED BY: VD. EXAMINATION : PATIENT IS ALERT O X 3 AND COOPERATIVE. PATIENT HAS TENDERNESS IN THE LOWER BACK AND IN THE PARASPINAL MUSCLE GROUP. PATIENT IS LIMPING FROM THE LEFT HIP AND BUT STATES THERE IS PAIN IN BOTH. MRI DONE ON 07/11/2014 SHOWS BULGING DISC L4-L5, L5-S1 AND FACET HYPERTROPHY. ASSESSMENTS SPONDYLOSIS WITHOUT MYELOPATHY OR RADICULOPATHY, LUMBAR REGION - M47.816 (PRIMARY) SPONDYLOSIS WITHOUT MYELOPATHY OR RADICULOPATHY, LUMBOSACRAL REGION - M47.817 TREATMENT SPONDYLOSIS WITHOUT MYELOPATHY OR RADICULOPATHY, LUMBAR REGION NOTES: WE DISCUSSED SEVERAL ISSUES WITH MRS. COKER'S PAIN MANAGEMENT CASE. AT THIS TIME THE PATIENT WILL CONTINUE WITH THE SAME MEDICATION REGIME BEFORE. PATIENT IS USING NORCO FOR THE SOMATIC PAIN. URINE TOXICOLOGY DONE ON 04/28/17 SHOWS CONSISTENT RESULTS WITH THE PATIENT'S MEDICATION LIST. PATIENT DENIES ABUSE OF ANY MEDICATION, DENIES USE OF ILLEGAL SUBSTANCES, AND STATES SHE IS ONLY USING THE MEDICATION FOR PAIN MANAGEMENT. AT THIS TIME DUE TO THE SECOND DIAGNOSTIC TEST HAVING ADEQUATE RESULTS I WOULD LIKE TO MOVE FORWARD WITH AR RADIOFREQUENCY. WE DISCUSSED THE RISKS'S, BENENFITS, AND ALTERNATIVES OF THE INJECTION AND THE PATIENT WOULD LIKE TO PROCEED AT THIS TIME. INSTRUCTIONS WERE GIVEN, QUESTIONS WERE ANSWERED, PATIENT REPORTS UNDERSTANDING AND AGREES WITH THE PLAN. I, UDAY ARREGUIN, DOCUMENTED THE ABOVE INFORMATION ACTING A SCRIBE FOR DR. STOKES. I HAVE REVIEWED THE ABOVE DOCUMENT, WRITTEN BY UDAY MULTANI AND I VERIFY THAT IT IS ACCURATE. PREVENTIVE MEDICINE DISCUSSED PRE PROCEDURE CARE AND RADIOFREQUENCY PROCEDURE WITH PT AND SHE EXPRESSED UNDERSTANDING. PROCEDURE CODES FA211 ESTABILISHED PATIENT [facility] FACILITY CHARGE V8621 DOC MEDS VERIFIED W/PT OR RE U6966 PAIN ASSESS POS TOOL F/U PLAN DOC DISPOSITION & COMMUNICATION FOLLOW UP 3 WEEKS ELECTRONICALLY SIGNED BY BISI STOKES MD ON 05/31/2017 AT 03:53 PM EDT DISCLAIMER : THIS IS A VISIT SUMMARY EXTRACTED FROM THE [employer] CHART. IT IS NOT A COPY OF THE [employer] PROGRESS NOTE. RANDY
== END ==
LOC: M PAIN 11:00
PROVIDERS: ATTEND Anesthesiology
DX: M47.816 Spondylosis without myelopathy or radiculopathy, lumbar region (principal); M47.817 Spondylosis without myelopathy or radiculopathy, lumbosacral region; M54.5 Low back pain; G89.29 Other chronic pain; Z79.891 Long term (current) use of opiate analgesic; Z79.899 Other long term (current) drug therapy

== ENCOUNTER → 2017-05-26 | Outpatient (CLI) | payer BC ==
[~2017-05-26] MED LIST changes: +BUPIVACAINE HCL 0.25% 30 ML VIAL As Ordered ONE; +ISOVUE-M 300 61% 15ML VIAL (Q9967) As Ordered ONE; +LIDOCAINE 1% SDV INJ 30 ML VIAL As Ordered ONE; +TRIAMCINOLONE ACETONIDE SUSP 40 MG/ML VIAL (J3301) As Ordered ONE
--- NOTE | 2017-05-26 18:33 | REP ---
FLUOROSCOPIC GUIDED SPINAL INJECTION: All imaging was reviewed with Dr. Malcolm prior to dictation. The patient has a history of back pain. The portable C-Arm is provided in the OR for Dr. De Jesus for fluoroscopic guidance. Four intraoperative fluoroscopic spot films were obtained using last imaging hold technology for needle placement verification. The films are on the PACs system and are available for review. 45 seconds of fluoroscopy time were utilized during this procedure. Reviewed by ELVER Verma 05/27/2017 08:17 AEdited and Signed by Santiago Malcolm MD 05/27/2017 05:03 P
--- NOTE | 2017-05-31 23:40 | ECWPNPC ---
PATIENT NAME: LJ COKER : 1970 GENDER: FEMALE VISIT DATE: 05/26/2017 DISCHARGE DATE: 05/26/17 1651 VISIT LOCKED DATE TIME: PHYSICIAN: BISI STOKES RESOURCE: BISI STOKES REASON FOR APPOINTMENT 1. RF HISTORY OF PRESENT ILLNESS HISTORY OF PRESENT ILLNESS: PAIN THE PATIENT DESCRIBES THE PAIN... FALL RISK SCREENING: SCREENING :NO FALLS IN THE PAST YEAR CURRENT MEDICATIONS TAKING ADVAIR DISKUS 250-50 MCG/DOSE MISCELLANEOUS 1 INHALATION EVERY 12 HRS, NOTES: 2100 05/25/17 TAKING ALBUTEROL SULFATE HFA 108 (90 BASE) MCG/ACT AEROSOL SOLUTION 2 PUFFS INHALATION EVERY 4 HOURS NEEDED, NOTES: NOT LATELY TAKING DEXILANT 60 MG CAPSULE DELAYED RELEASE 1 CAPSULE ORALLY ONCE A DAY, NOTES: 2 DAYS TAKING NALOXEGOL OXALATE 25 MG TABLET 1 TABLET IN THE MORNING ORALLY ONCE A DAY NEEDED, NOTES: AWHILE TAKING MULTIVITAMIN GUMMIES ADULT - TABLET CHEWABLE 2 TABLETS ORALLY DAILY, NOTES: 3 MONTHS TAKING BIOTIN 5000 5 MG CAPSULE 1 CAPSULE ORALLY ONCE A DAY (UNSURE OF DOSE), NOTES: 3 MONTHS TAKING VITAMIN B-12 1000 MCG TABLET SUBLINGUAL 3 TABS SUBLINGUAL ONCE A DAY, NOTES: 3 MONTHS TAKING CARAFATE 1 GM TABLET 1 TABLET ON AN EMPTY STOMACH ORALLY FOUR TIMES A DAY NEEDED, NOTES: 4-5 MONTHS TAKING FOLIC ACID 1 MG TABLET 1 TABLET ORALLY ONCE A DAY, NOTES: 3 MONTHS TAKING TIZANIDINE HCL 4 MG TABLET 1-2 ORALLY QHS PRN FOR SPASMS AND PAIN, NOTES: MIDNIGHT 05/25/17 TAKING NORCO 10-325 MG TABLET 1 TABLET NEEDED ORALLY EVERY 6 HRS MDD4, NOTES: MIDNIGHT 05/25/17 NOT-TAKING AMOXICILLIN 500 MG CAPSULE 1 CAPSULE ORALLY PRIOR TO DENTAL WORK NOT-TAKING HYDROCHLOROTHIAZIDE 25 MG TABLET 1 TABLET ORALLY ONCE A DAY NOT-TAKING DAPAGLIFLOZIN PROPANEDIOL 10 MG TABLET 1 TABLET ORALLY ONCE A DAY NOT-TAKING ONDANSETRON 4 MG TABLET DISPERSIBLE 1 TABLET ON THE TONGUE AND ALLOW TO DISSOLVE ORALLY EVERY 8 HRS NOT-TAKING VICTOZA ___ SOLUTION PEN-INJECTOR 1.8 MG SUBCUTANEOUS ONCE A DAY NOT-TAKING LISINOPRIL 20 MG TABLET 1 TABLET ORALLY ONCE A DAY NOT-TAKING VITAMIN D (ERGOCALCIFEROL) 59252 UNIT CAPSULE 1 CAPSULE ORALLY WEEKLY NOT-TAKING CRESTOR _ TABLET 1 TABLET ORALLY ONCE A DAY, NOTES: LAST NIGHT NOT-TAKING PREVACID 30 MG CAPSULE DELAYED RELEASE 1 CAPSULE BEFORE A MEAL ORALLY ONCE A DAY MEDICATION LIST REVIEWED AND RECONCILED WITH THE PATIENT PAST MEDICAL HISTORY ASTHMA HYPERTENSION DIABETES MELLITUS GASTROPARESIS LUMBAR DISC DISORDER WITH RADICULOPATHY LUMBAR RADICULOPATHY LUMBAR SPINAL STENOSIS GASTRIC BYPASS ALLERGIES CIPRO: HIVES: ALLERGY NSAIDS: CANT USE GASTRIC BYPASS REVIEW OF SYSTEMS REVIEWED BY: PROVIDER: . CONSTITUTIONAL: ANY CHANGE IN YOUR MEDICAL CONDITION? NO . CHILLS NO . FEVER NO . INFECTION: DO YOU HAVE NEW INFECTIONS? NO . DO YOU HAVE HISTORY OF MRSA? NO . MUSCULOSKELETAL: ANY NEW PATTERNS OF PAIN OR NUMBNESS? NO . GASTROENTEROLOGY: ANY NEW CHANGE IN BOWEL CONTROL? NO . GENITOURINARY: ANY NEW CHANGE IN BLADDER CONTROL? NO . IS THERE A CHANCE YOU COULD BE ? NO . HEMATOLOGY/LYMPH: DO YOU TAKE ANY BLOOD THINNERS? (FOR EXAMPLE- COUMADIN, PLAVIX, AGGRENOX, PLATEL, PRADAXA, OR XARELTO) NO . WHEN WAS YOUR LAST DOSE? DATE: TIME: . NEUROLOGY: HAVE YOU FALLEN IN THE PAST 6 MONTHS? NO . ANY NEW EXTREMITY NUMBNESS OR WEAKNESS? NO . CARDIOLOGY: DO YOU HAVE A PACEMAKER OR DEFIBRILLATOR? NO . RESPIRATORY: HAVE YOU BEEN SICK IN THE PAST WEEK? NO . FEVER NO . FLU LIKE SYMPTOMS? NO . COUGH NO . INTEGUMENTARY: DO YOU HAVE ANY RASHES OR OPEN SORES? NO . ALLERGIC/IMMUNO: ARE YOU ALLERGIC TO SHELLFISH OR IV DYE? NO . ANY NEW ALLERGIES? NO . PSYCHIATRIC: DO YOU HAVE THOUGHTS OF HURTING YOURSELF OR SOMEONE ELSE? NO . ARE YOU ABUSED, NEGLECTED, OR IN AN UNSAFE ENVIRONMENT? NO . ENDOCRINOLOGY: ARE YOU DIABETIC? NO . OTHER: DO YOU NEED ANY PRESCRIPTIONS? YES . IF YES, PLEASE LIST: TIZANIDINE 4MG . ANY NEW PROBLEMS WITH YOUR MEDICATIONS? NO . WHEN DID YOU LAST EAT? 10PM . WHEN DID YOU LAST DRINK? 6AM . WHAT DID YOU LAST DRINK? SODA . NAME OF PERSON DRIVING YOU HOME? FER . DO YOU HAVE ANY OTHER QUESTIONS OR CONCERNS NO . VITAL SIGNS WT 180 LBS, HT 67 IN, BMI 28.19 INDEX, BP 162/93 MM HG, HR 73 /MIN, RR 16 /MIN, TEMP 98.1 F, OXYGEN SAT % 98%, NA INITIALS AW 1321, REVIEWED BY: LS, BP SITTING NL. ASSESSMENTS SPONDYLOSIS WITHOUT MYELOPATHY OR RADICULOPATHY, LUMBAR REGION - M47.816 (PRIMARY) SPONDYLOSIS WITHOUT MYELOPATHY OR RADICULOPATHY, LUMBOSACRAL REGION - M47.817 PROCEDURES PN RADIOFREQUENCY PRE PROCEDURE DIAGNOSES 1. LUMBAR SPONDYLOSIS. 2. LUMBOSACRAL SPONDYLOSIS POST PROCEDURE DIAGNOSES 1. LUMBAR SPONDYLOSIS. 2. LUMBOSACRAL SPONDYLOSIS PROCEDURE RIGHT L4-L5 AND RIGHT L5-S1 LUMBAR FACET RADIOFREQUENCY SURGEON DR. BISI STOKES CAN CAPPER NONE ANESTHESIA LOCAL PRE PROCEDURE REPORT THE PATIENT HAS HISTORY OF CHRONIC LOW BACK PAIN. I EVALUATE THE PATIENT AND REVIEWED THE CHART. I WENT OVER THE RISKS, ALTERNATIVES, AND BENEFITS ASSOCIATED WITH THIS PROCEDURE. THE PATIENT WOULD LIKE TO PROCEED AND GIVE CONSENT TO PERFORMED THE PROCEDURE. THE PATIENT DENIES UNEXPLAINABLE WEIGHT LOSS, FEVER, CHILLS, OR NEW CHANGES IN URINARY OR BOWEL CONTROL DESCRIPTION OF PROCEDURE THE PATIENT WAS BROUGHT TO THE PROCEDURE ROOM AND PLACED IN THE PRONE POSITION. THE LUMBOSACRAL AREA WAS CLEANED WITH CHLORAPREP SOLUTION AND DRAPED ASEPTICALLY. THE PROCEDURE WAS DONE UNDER STERILE CONDITIONS. I CHECKED LATERALITY AND THE LEVEL WHERE THE PROCEDURE WAS GOING TO BE PERFORMED WITH THE PATIENT AND THE SUPPORTING STAFF AT THE MOMENT OF THE TIME OUT IN THE PROCEDURE ROOM. UNDER FLUOROSCOPIC GUIDANCE, TARGETS WERE SELECTED AT THE INTERSECTION OF THE RIGHT TRANSVERSE PROCESS OF L4, L5 AND ALA OF S1 WITH ITS RESPECTIVE SUPERIOR ARTICULAR PROCESS. LIDOCAINE WAS USED TO NUMB THE SKIN AND THE SUBCUTANEOUS TISSUE BELOW IT. RADIOFREQUENCY NEEDLES 22-GAUGE 15 CM LONG WITH 10 MM ACTIVE CURVE TIP WERE ADVANCED UNDER FLUOROSCOPIC GUIDANCE AND FOLLOWING PATIENT FEEDBACK UNTIL THE TARGET AREA WAS REACHED. POSITION OF THE NEEDLES WAS VERIFIED WITH AP AND LATERAL VIEWS. AFTER PROPER POSITION OF THE NEEDLE WAS ACHIEVED, WE WORKED WITH THE RIGHT SELECTED MEDIAN BRANCHES OF L3, L4 AND THE DORSAL RAMI OF L5. WE MEASURED THE CORRESPONDING IMPEDANCES, SENSORY STIMULATION AND MOTOR RESPONSES INDICATED IN THE RADIOFREQUENCY WORKSHEET. POSITION OF THE NEEDLES WAS VERIFIED AGAIN WITH AP AND LATERAL VIEWS. LIDOCAINE 1%, 2 ML, WAS INJECTED AT EACH LEVEL. RADIOFREQUENCY WAS DONE AT EACH LEVEL AT 80 DEGREES FOR 90 SECONDS. AFTER RADIOFREQUENCY WAS DONE, THE PATIENT RECEIVED BUPIVACAINE 0.125% 1 CC WITH KENALOG 5 MG AT EACH SITE. THERE WAS NO EVIDENCE OF BLOOD, PARESTHESIA OR CEREBROSPINAL FLUID DURING THE PROCEDURE. THE PATIENT WAS SENT TO THE RECOVERY ROOM. THE PATIENT WAS MOVING THE EXTREMITIES AND DOING WELL. THERE WAS NO COMPLICATION DURING THE PROCEDURE. FLUOROSCOPY TIME WAS 45 SECONDS POST PROCEDURE NOTE THE PATIENT WILL BE SEEN IN A FOLLOW UP IN THE NEXT FEW WEEKS. INSTRUCTIONS WERE GIVEN, QUESTIONS WERE ANSWERED, AND THE PATIENT EXPRESSED UNDERSTANDING AND AGREES WITH THE PLAN. I, UDAY ARREGUIN, DOCUMENTED THE ABOVE INFORMATION ACTING A SCRIBE FOR DR. STOKES. I, DR. STOKES, HAVE REVIEWED THE ABOVE DOCUMENT, SCRIBED BY UDAY ARREGUIN, AND I VERIFY THAT IT IS ACCURATE DIAGNOSTIC IMAGING [facility] FLUORO GUIDE SPINE INJECTION ([phone] PROCEDURE CODES 55861 DESTROY LUMB/SAC FACET JNT 93835 DESTROY L/S FACET JNT ADDL [id number] RADXPS IN END [id number] [id number] DISPOSITION & COMMUNICATION FOLLOW UP 3 WEEKS ELECTRONICALLY SIGNED BY BISI STOKES MD ON 05/31/2017 AT 07:08 PM EDT DISCLAIMER : THIS IS A VISIT SUMMARY EXTRACTED FROM THE [employer] CHART. IT IS NOT A COPY OF THE [employer] PROGRESS NOTE. MTDD
== END ==
LOC: M PAIN 13:00
PROVIDERS: ATTEND Anesthesiology
DX: G89.29 Other chronic pain (principal); M47.816 Spondylosis without myelopathy or radiculopathy, lumbar region; M47.817 Spondylosis without myelopathy or radiculopathy, lumbosacral region; M54.5 Low back pain; J45.909 Unspecified asthma, uncomplicated; I10 Essential (primary) hypertension; E11.9 Type 2 diabetes mellitus without complications; K31.84 Gastroparesis; Z98.84 Bariatric surgery status; Z79.899 Other long term (current) drug therapy; Z88.1 Allergy status to other antibiotic agents; Z88.8 Allergy status to other drugs, medicaments and biological substances
CPT/HCPCS: 64635; 64636; J3301; Q9967

== ENCOUNTER → 2017-06-26 | Outpatient (CLI) | payer BC ==
[~2017-06-26] MED LIST changes: -BUPIVACAINE HCL 0.25% 30 ML VIAL As Ordered ONE; -ISOVUE-M 300 61% 15ML VIAL (Q9967) As Ordered ONE; -LIDOCAINE 1% SDV INJ 30 ML VIAL As Ordered ONE; -TRIAMCINOLONE ACETONIDE SUSP 40 MG/ML VIAL (J3301) As Ordered ONE
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
== END ==
LOC: M PAIN 09:00
PROVIDERS: ATTEND Anesthesiology
DX: M47.816 Spondylosis without myelopathy or radiculopathy, lumbar region (principal); M46.1 Sacroiliitis, not elsewhere classified; M47.817 Spondylosis without myelopathy or radiculopathy, lumbosacral region; M54.5 Low back pain; G89.29 Other chronic pain; Z79.891 Long term (current) use of opiate analgesic; Z79.899 Other long term (current) drug therapy; Z88.1 Allergy status to other antibiotic agents; Z88.8 Allergy status to other drugs, medicaments and biological substances

== ENCOUNTER → 2017-08-24 | Outpatient (CLI) | payer BC | LOC: M PAIN 15:15 | PROVIDERS: ATTEND Nurse Practitioner Family | DX: Z53.29 Procedure and treatment not carried out because of patient's decision for other reasons (principal) ==

== ENCOUNTER → 2017-09-24 | Outpatient (CLI) | payer BC ==
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
== END ==
LOC: M PAIN 15:00
PROVIDERS: ATTEND Nurse Practitioner Family
DX: G89.29 Other chronic pain (principal); M51.17 Intervertebral disc disorders with radiculopathy, lumbosacral region; M51.16 Intervertebral disc disorders with radiculopathy, lumbar region; J45.909 Unspecified asthma, uncomplicated; I10 Essential (primary) hypertension; E11.9 Type 2 diabetes mellitus without complications; Z88.6 Allergy status to analgesic agent; Z88.8 Allergy status to other drugs, medicaments and biological substances; Z79.891 Long term (current) use of opiate analgesic; Z79.899 Other long term (current) drug therapy

== ENCOUNTER → 2017-10-27 | Outpatient (CLI) | payer BC ==
[~2017-10-27] MED LIST changes: -/ADVA50050 IN; -/ADVA50050 PO; -/LANS30GR PO; -ACET65TA OR; -ADV250INH INH; -ADVAIR INH; -ALBU17IN2 INH; -AZIT500T2 PO; -CEFD1CAP8 PO; -CLAR5CHW PO; -COLA100C2 OR; -DEXI60CA2 PO; -DULO30CA PO; -FARX1TAB5 PO; -FLEXERIL PO; -GABA-282 PO; -HYDR-3713 PO; -HYDR25TA6 OR; +ISOVUE-M 300 61% 15ML VIAL (Q9967) As Ordered; +LIDOCAINE 1% SDV INJ 30 ML VIAL As Ordered; -LISI40TA PO; -METF500T13 PO; -MIRA3350 PO; -MOVA1TAB2 PO; -MULT1TAB10 PO; -NAPR500T OR; -NEUR100C OR; -NEUR300C PO; -NUCYNTA OR; -ONDA4TAB6 PO; -OXYC-517 PO; -OXYC10TA97 OR; -PERC5TAB8 OR; -PREV1CAP PO; -PROV90AE INH; -REGL10TA6 PO; -SOMA350T PO; -TIZA4CAP3 PO; -VENL75TA2 OR; -VICT18IN SC; -ZANA4TAB PO; -[UNRECOGNIZED DRUG - OTHER] PO; -[UNRECOGNIZED DRUG - OTHER] PO; +methylPREDNISolone SUSP 40 MG/ML (DEPO-medrol) VIAL (J1030) As Ordered
== END ==
LOC: M PAIN 08:30
DX: G89.29 Other chronic pain (principal); M51.16 Intervertebral disc disorders with radiculopathy, lumbar region; J45.909 Unspecified asthma, uncomplicated; I10 Essential (primary) hypertension; E11.43 Type 2 diabetes mellitus with diabetic autonomic (poly)neuropathy; Z88.6 Allergy status to analgesic agent; Z88.8 Allergy status to other drugs, medicaments and biological substances; Z79.899 Other long term (current) drug therapy; Z98.84 Bariatric surgery status
CPT/HCPCS: J1030

== ENCOUNTER 2017-11-25 13:18 | Emergency (ER) | payer BC ==
[2017-11-25 14:49] LABS: APPEARANCE, URINE CLEAR (CLEAR); BACTERIA, URINE AUTO NEGATIVE (NEGATIVE); BILIRUBIN, URINE AUTO NEGATIVE (NEGATIVE); BLOOD, URINE BLOOD 2+ (NEGATIVE); CALCIUM OXALATE CRYSTALS SMALL; COLOR, URINE YELLOW (YELLOW); GLUCOSE, URINE (UA) AUTO NEGATIVE (NEGATIVE); KETONE, URINE AUTO TRACE mg/dL (NEGATIVE); LEUKOCYTE ESTERASE, URINE AUTO NEGATIVE (NEGATIVE); MUCUS, URINE SMALL (NEGATIVE); NITRITE, URINE AUTO NEGATIVE (NEGATIVE); PROTEIN, URINE AUTO NEGATIVE (NEGATIVE); RBC, URINE AUTO 34 /HPF (0-3); SPECIFIC GRAVITY URINE AUTO 1.018 (1.002-1.035); SQUAMOUS EPITHELIAL CELL UR AU 1 /HPF (0-6); WBC, URINE AUTO 4 /HPF (0-3)
[2017-11-25] MEDS: MORPHINE 4 MG/ML 1ML VIAL (J2270) IV (15:00)
[2017-11-25] MEDS: ONDANSETRON 4MG/2ML VIAL (J2405) IV (15:00)
[2017-11-25 15:11] LABS: BASO % 0.5 % (0.0-1.0); EOS # 0.2 10^3/uL (0.0-0.50); EOS % 2.9 % (0.0-3.0); HEMATOCRIT 40.3 % (36.0-47.0); HEMOGLOBIN 13.4 g/dl (12.0-16.0); IMMATURE GRANULOCYTE % 0.3 % (0-3.0); LYMPH # 1.8 10^3/uL (1.5-4.5); LYMPH % 30.3 % (24.0-44.0); MEAN CORPUSCULAR HEMOGLOBIN 26.9 pg (27.0-33.0); MEAN CORPUSCULAR HGB CONC 33.3 g/dl (32.0-36.5); MEAN CORPUSCULAR VOLUME 80.9 fl (80.0-96.0); MONO # 0.3 10^3/uL (0.0-0.8); MONO % 5.5 % (0.0-5.0); NEUTROPHILS # 3.6 10^3/uL (1.8-7.7); NEUTROPHILS % 60.5 % (36.0-66.0); PLATELET COUNT, AUTOMATED 235 10^3/uL (150-450); RED BLOOD COUNT 4.98 10^6/uL (4.00-5.40); RED CELL DISTRIBUTION WIDTH 13.2 % (11.5-14.5); WHITE BLOOD COUNT 5.9 10^3/uL (4.0-10.0)
[2017-11-25 15:16] LABS: CONTROL LINE UCG INT CTR LINE PRESENT; URINE PREG TEST NEGATIVE (NEGATIVE)
[2017-11-25 15:21] LABS: CALCIUM OXALATE CRYSTALS RFX SMALL; KETONE, URINE AUTO RFX TRACE mg/dL (NEGATIVE); LEUKOCYTE ESTERASE UR AUTO RFX NEGATIVE (NEGATIVE); MUCUS, URINE RFX SMALL (NEGATIVE); NITRITE, URINE AUTO RFX NEGATIVE (NEGATIVE); RBC, URINE AUTO RFX 42 /HPF (0-3); SPECIFIC GRAVITY UR AUTO RFX 1.018 (1.002-1.035); SQUAM EPITHELIAL CELL UR AURFX 1 /HPF (0-6); WBC, URINE AUTO RFX 4 /HPF (0-3)
[2017-11-25 15:36] LABS: ALBUMIN 4.2 GM/DL (3.2-5.2); ALBUMIN/GLOBULIN RATIO 1.45 (1.00-1.93); ALKALINE PHOSPHATASE 88 U/L (45-117); ALT/SGPT 28 U/L (12-78); ANION GAP 8 MEQ/L (8-16); AST/SGOT 31 U/L (7-37); BILIRUBIN,TOTAL 0.4 MG/DL (0.2-1.0); BLOOD UREA NITROGEN 13 MG/DL (7-18); CALCIUM LEVEL 8.9 MG/DL (8.5-10.1); CARBON DIOXIDE LEVEL 30 MEQ/L (21-32); CHLORIDE LEVEL 106 MEQ/L (98-107); CREATININE FOR GFR 0.66 MG/DL (0.55-1.30); GLOMERULAR FILTRATION RATE > 60.0 (>58); GLUCOSE, FASTING 99 MG/DL (70-100); POTASSIUM SERUM 4.3 MEQ/L (3.5-5.1); SODIUM LEVEL 144 MEQ/L (136-145); TOTAL PROTEIN 7.1 GM/DL (6.4-8.2)
== END 2017-11-25 18:03 | disposition home or self-care (01) ==
LOC: M ED 13:18
DX: N20.0 Calculus of kidney (principal)
CPT/HCPCS: J2270

== ENCOUNTER 2017-12-14 12:40 | Emergency (ER) | payer BC ==
[2017-12-14 14:20] LABS: BASO % 0.5 % (0.0-1.0); EOS # 0.2 10^3/uL (0.0-0.50); EOS % 3.3 % (0.0-3.0); HEMATOCRIT 39.1 % (36.0-47.0); HEMOGLOBIN 13.1 g/dl (12.0-16.0); IMMATURE GRANULOCYTE % 0.2 % (0-3.0); LYMPH # 1.9 10^3/uL (1.5-4.5); LYMPH % 31.2 % (24.0-44.0); MEAN CORPUSCULAR HEMOGLOBIN 27.3 pg (27.0-33.0); MEAN CORPUSCULAR HGB CONC 33.5 g/dl (32.0-36.5); MEAN CORPUSCULAR VOLUME 81.5 fl (80.0-96.0); MONO # 0.4 10^3/uL (0.0-0.8); NEUTROPHILS # 3.5 10^3/uL (1.8-7.7); NEUTROPHILS % 58.8 % (36.0-66.0); PLATELET COUNT, AUTOMATED 214 10^3/uL (150-450); RED CELL DISTRIBUTION WIDTH 13.3 % (11.5-14.5)
[2017-12-14 14:38] LABS: ANION GAP 8 MEQ/L (8-16); BLOOD UREA NITROGEN 9 MG/DL (7-18); CALCIUM LEVEL 8.8 MG/DL (8.5-10.1); CARBON DIOXIDE LEVEL 26 MEQ/L (21-32); CHLORIDE LEVEL 108 MEQ/L (98-107); CK-MB VALUE MASS 3.1 NG/ML (0.0-3.6); CPK CREATINE PHOSPHOKINASE 147 U/L (26-192); CREATININE FOR GFR 0.64 MG/DL (0.55-1.30); GLOMERULAR FILTRATION RATE > 60.0 (>58); GLUCOSE, FASTING 99 MG/DL (70-100); POTASSIUM SERUM 3.5 MEQ/L (3.5-5.1); SODIUM LEVEL 142 MEQ/L (136-145); TROPONIN I < 0.02 NG/ML (< 0.10)
[2017-12-14] MEDS: PERCOCET 5MG/325MG TAB PO (16:46)
== END 2017-12-14 17:15 | disposition home or self-care (01) ==
LOC: M ED 12:40
DX: R07.9 Chest pain, unspecified (principal); I10 Essential (primary) hypertension; F41.9 Anxiety disorder, unspecified; F33.9 Major depressive disorder, recurrent, unspecified; Z86.69 Personal history of other diseases of the nervous system and sense organs; Z98.0 Intestinal bypass and anastomosis status; Z98.890 Other specified postprocedural states; Z82.49 Family history of ischemic heart disease and other diseases of the circulatory system; Z88.8 Allergy status to other drugs, medicaments and biological substances; Z88.1 Allergy status to other antibiotic agents
CPT/HCPCS: 71046

== ENCOUNTER → 2017-12-21 | Outpatient (CLI) | payer BC | LOC: M PAIN 14:30 | DX: M51.17 Intervertebral disc disorders with radiculopathy, lumbosacral region (principal); M51.16 Intervertebral disc disorders with radiculopathy, lumbar region; M46.1 Sacroiliitis, not elsewhere classified; I10 Essential (primary) hypertension; E11.9 Type 2 diabetes mellitus without complications; Z79.891 Long term (current) use of opiate analgesic; Z79.899 Other long term (current) drug therapy; Z88.8 Allergy status to other drugs, medicaments and biological substances; Z98.84 Bariatric surgery status | CPT/HCPCS: G0463 ==

== ENCOUNTER → 2017-12-31 | Outpatient (REF) | payer BC ==
[2017-12-31 20:14] LABS: APPEARANCE, URINE HAZY (CLEAR); BACTERIA, URINE AUTO NEGATIVE (NEGATIVE); BILIRUBIN, URINE AUTO NEGATIVE (NEGATIVE); BLOOD, URINE BLOOD NEGATIVE (NEGATIVE); CALCIUM OXALATE CRYSTALS SMALL; COLOR, URINE YELLOW (YELLOW); GLUCOSE, URINE (UA) AUTO 1+ mg/dL (NEGATIVE); KETONE, URINE AUTO TRACE mg/dL (NEGATIVE); LEUKOCYTE ESTERASE, URINE AUTO NEGATIVE (NEGATIVE); MUCUS, URINE SMALL (NEGATIVE); NITRITE, URINE AUTO NEGATIVE (NEGATIVE); PROTEIN, URINE AUTO NEGATIVE (NEGATIVE); RBC, URINE AUTO 0 /HPF (0-3); SPECIFIC GRAVITY URINE AUTO 1.023 (1.002-1.035); SQUAMOUS EPITHELIAL CELL UR AU 1 /HPF (0-6); WBC, URINE AUTO 2 /HPF (0-3)
== END ==
LOC: M SMT 17:05
DX: N20.0 Calculus of kidney (principal)

== ENCOUNTER → 2018-01-18 | Outpatient (CLI) | payer BC ==
[~2018-01-18] MED LIST changes: +BUPIVACAINE HCL 0.25% 30 ML VIAL As Ordered; +TRIAMCINOLONE ACETONIDE SUSP 40 MG/ML VIAL (J3301) As Ordered; -methylPREDNISolone SUSP 40 MG/ML (DEPO-medrol) VIAL (J1030) As Ordered
== END ==
LOC: M PAIN 09:45
DX: G89.29 Other chronic pain (principal); M46.1 Sacroiliitis, not elsewhere classified; M53.88 Other specified dorsopathies, sacral and sacrococcygeal region; J45.909 Unspecified asthma, uncomplicated; I10 Essential (primary) hypertension; E11.43 Type 2 diabetes mellitus with diabetic autonomic (poly)neuropathy; Z79.899 Other long term (current) drug therapy; Z88.5 Allergy status to narcotic agent; Z88.6 Allergy status to analgesic agent; Z88.8 Allergy status to other drugs, medicaments and biological substances; Z96.642 Presence of left artificial hip joint; Z98.84 Bariatric surgery status
CPT/HCPCS: J3301

== ENCOUNTER → 2018-03-09 | Outpatient (REF) | payer BC ==
[2018-03-09 20:00] LABS: APPEARANCE, URINE CLOUDY (CLEAR); BACTERIA, URINE AUTO 2+ (NEGATIVE); BILIRUBIN, URINE AUTO NEGATIVE (NEGATIVE); BLOOD, URINE BLOOD 3+ (NEGATIVE); CALCIUM OXALATE CRYSTALS MODERATE; COLOR, URINE AMBER (YELLOW); GLUCOSE, URINE (UA) AUTO NEGATIVE (NEGATIVE); KETONE, URINE AUTO TRACE mg/dL (NEGATIVE); LEUKOCYTE ESTERASE, URINE AUTO 2+ (NEGATIVE); MUCUS, URINE SMALL (NEGATIVE); NITRITE, URINE AUTO POSITIVE (NEGATIVE); PROTEIN, URINE AUTO 1+ mg/dL (NEGATIVE); RBC, URINE AUTO 58 /HPF (0-3); SPECIFIC GRAVITY URINE AUTO 1.028 (1.002-1.035); SQUAMOUS EPITHELIAL CELL UR AU 2 /HPF (0-6); UROBILINOGEN, URINE AUTO 0.2 mg/dL (0.0-2.0); WBC, URINE AUTO 86 /HPF (0-3)
== END ==
LOC: M SMT 17:03
DX: R30.0 Dysuria (principal)
CPT/HCPCS: 81001

== ENCOUNTER → 2018-03-18 | Outpatient (CLI) | payer BC | LOC: M PAIN 11:15 | DX: M51.17 Intervertebral disc disorders with radiculopathy, lumbosacral region (principal); Z79.891 Long term (current) use of opiate analgesic; M51.16 Intervertebral disc disorders with radiculopathy, lumbar region; M46.1 Sacroiliitis, not elsewhere classified; J45.909 Unspecified asthma, uncomplicated; E11.43 Type 2 diabetes mellitus with diabetic autonomic (poly)neuropathy; Z98.84 Bariatric surgery status; M48.061 Spinal stenosis, lumbar region without neurogenic claudication; Z79.899 Other long term (current) drug therapy; Z90.49 Acquired absence of other specified parts of digestive tract; Z88.1 Allergy status to other antibiotic agents; Z88.5 Allergy status to narcotic agent; Z88.6 Allergy status to analgesic agent | CPT/HCPCS: G0463 ==

== ENCOUNTER → 2018-05-03 | Outpatient (CLI) | payer BC | LOC: M RAD 09:55 | DX: M50.30 Other cervical disc degeneration, unspecified cervical region (principal); Z98.1 Arthrodesis status; M47.893 Other spondylosis, cervicothoracic region; M50.221 Other cervical disc displacement at C4-C5 level | CPT/HCPCS: 72141 ==

== ENCOUNTER → 2018-06-15 | Outpatient (CLI) | payer BC | LOC: M PAIN 10:00 | DX: M51.17 Intervertebral disc disorders with radiculopathy, lumbosacral region (principal); J45.909 Unspecified asthma, uncomplicated; I10 Essential (primary) hypertension; E11.43 Type 2 diabetes mellitus with diabetic autonomic (poly)neuropathy; Z79.899 Other long term (current) drug therapy; Z87.820 Personal history of traumatic brain injury; Z88.6 Allergy status to analgesic agent; Z88.5 Allergy status to narcotic agent; Z88.8 Allergy status to other drugs, medicaments and biological substances; Z98.84 Bariatric surgery status; Z96.642 Presence of left artificial hip joint | CPT/HCPCS: G0463 ==

== ENCOUNTER → 2018-07-28 | Outpatient (CLI) | payer BC | LOC: M PAIN 10:00 | DX: M51.17 Intervertebral disc disorders with radiculopathy, lumbosacral region (principal); M46.1 Sacroiliitis, not elsewhere classified; J45.909 Unspecified asthma, uncomplicated; I10 Essential (primary) hypertension; E11.43 Type 2 diabetes mellitus with diabetic autonomic (poly)neuropathy; Z79.899 Other long term (current) drug therapy; Z87.820 Personal history of traumatic brain injury; Z88.5 Allergy status to narcotic agent; Z88.6 Allergy status to analgesic agent; Z88.8 Allergy status to other drugs, medicaments and biological substances; Z96.642 Presence of left artificial hip joint; Z98.84 Bariatric surgery status | CPT/HCPCS: G0463 ==

== ENCOUNTER → 2018-11-05 | Outpatient (CLI) | payer OTHER ==
[~2018-11-05] MED LIST changes: +/ADVA50050 IN; +/ADVA50050 PO; +/LANS30GR PO; +ACET65TA OR; +ADV250INH INH; +ADVAIR INH; +ALBU17IN2 INH; +AZIT500T2 PO; -BUPIVACAINE HCL 0.25% 30 ML VIAL As Ordered; +CEFD1CAP8 PO; +CLAR5CHW PO; +COLA100C2 OR; +DEXI60CA2 PO; +DULO30CA PO; +FARX1TAB5 PO; +FLEXERIL PO; +FLOM0.4C39 PO; +GABA-843 PO; +HYDR-3713 PO; +HYDR25TA6 OR; -ISOVUE-M 300 61% 15ML VIAL (Q9967) As Ordered; -LIDOCAINE 1% SDV INJ 30 ML VIAL As Ordered; +LISI40TA PO; +MACR100C43 PO; +METF500T13 PO; +MIRA3350 PO; +MOVA1TAB2 PO; +MULT1TAB10 PO; +NAPR500T OR; +NEUR100C OR; +NEUR300C PO; +NUCYNTA OR; +ONDA4TAB6 PO; +OXYC-517 PO; +OXYC10TA97 OR; +PERC5TAB8 OR; +PREV1CAP PO; +PROV90AE INH; +REGL10TA6 PO; +SOMA350T PO; +TIZA4CAP PO; -TRIAMCINOLONE ACETONIDE SUSP 40 MG/ML VIAL (J3301) As Ordered; +VENL75TA2 OR; +VICT18IN SC; +ZANA4TAB PO; +[UNRECOGNIZED DRUG - OTHER] PO; +[UNRECOGNIZED DRUG - OTHER] PO
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
== END ==
LOC: M PAIN 09:30
PROVIDERS: ATTEND Anesthesiology
DX: M51.16 Intervertebral disc disorders with radiculopathy, lumbar region (principal); G89.29 Other chronic pain; J45.909 Unspecified asthma, uncomplicated; I10 Essential (primary) hypertension; E11.43 Type 2 diabetes mellitus with diabetic autonomic (poly)neuropathy; Z79.899 Other long term (current) drug therapy; Z88.5 Allergy status to narcotic agent; Z88.6 Allergy status to analgesic agent; Z88.8 Allergy status to other drugs, medicaments and biological substances; Z98.84 Bariatric surgery status; Z96.642 Presence of left artificial hip joint; Z87.820 Personal history of traumatic brain injury; Z87.891 Personal history of nicotine dependence

== ENCOUNTER → 2018-12-10 | Outpatient (CLI) | payer OTHER ==
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
== END ==
LOC: M PAIN 11:15
PROVIDERS: ATTEND Anesthesiology
DX: M51.16 Intervertebral disc disorders with radiculopathy, lumbar region (principal); G89.29 Other chronic pain; J45.909 Unspecified asthma, uncomplicated; I10 Essential (primary) hypertension; E11.9 Type 2 diabetes mellitus without complications; K31.84 Gastroparesis; Z98.84 Bariatric surgery status; Z96.642 Presence of left artificial hip joint; Z88.1 Allergy status to other antibiotic agents; Z88.5 Allergy status to narcotic agent; Z88.6 Allergy status to analgesic agent; Z79.899 Other long term (current) drug therapy

== ENCOUNTER → 2019-01-07 | Outpatient (CLI) | payer OTHER ==
[2019-01-07 14:23] LABS: BASO % 0.4 % (0.0-1.0); EOS # 0.3 10^3/uL (0.0-0.50); EOS % 4.6 % (0.0-3.0); HEMATOCRIT 39.6 % (36.0-47.0); HEMOGLOBIN 12.9 g/dl (12.0-15.5); LYMPH % 34.5 % (24.0-44.0); MEAN CORPUSCULAR HEMOGLOBIN 26.8 pg (27.0-33.0); MEAN CORPUSCULAR HGB CONC 32.6 g/dl (32.0-36.5); MEAN CORPUSCULAR VOLUME 82.2 fl (80.0-96.0); MONO # 0.4 10^3/uL (0.0-0.8); MONO % 6.3 % (0.0-5.0); NEUTROPHILS # 3.1 10^3/uL (1.8-7.7); PLATELET COUNT, AUTOMATED 275 10^3/uL (150-450); RED BLOOD COUNT 4.82 10^6/uL (4.00-5.40); WHITE BLOOD COUNT 5.7 10^3/uL (4.0-10.0)
[2019-01-07 14:47] LABS: ALT/SGPT 32 U/L (12-78); BILIRUBIN,TOTAL 0.3 MG/DL (0.2-1.0); BLOOD UREA NITROGEN 11 MG/DL (7-18); CALCIUM LEVEL 9.1 MG/DL (8.5-10.1); CARBON DIOXIDE LEVEL 31 MEQ/L (21-32); CHLORIDE LEVEL 105 MEQ/L (98-107); CREATININE FOR GFR 0.73 MG/DL (0.55-1.30); ERYTHROCYTE SEDIMENTATION RATE 7 mm/hr (0-30); GLOMERULAR FILTRATION RATE > 60.0 (>51); GLUCOSE, FASTING 123 MG/DL (70-100); POTASSIUM SERUM 4.5 MEQ/L (3.5-5.1); RHEUMATOID FACTOR QUANT < 10.0 IU/ML (<15.0); SODIUM LEVEL 144 MEQ/L (136-145); TOTAL PROTEIN 6.7 GM/DL (6.4-8.2); URIC ACID 3.8 MG/DL (2.6-6.0)
[2019-01-09 00:07] LABS: ANTINUCLEAR ANTIBODIES DIRECT Negative (Negative); Lyme Disease IgG/IgM Antibodie <0.91 ISR (0.00-0.90); Lyme Disease IgM Ab Quantitati <0.80 index (0.00-0.79)
[2019-01-11 08:18] LABS: CYCLIC CITRULLINATED PEPTIDE 4 units (0-19)
== END ==
LOC: M LAB 13:32
PROVIDERS: ATTEND Physician Assistant
DX: M25.50 Pain in unspecified joint (principal)

== ENCOUNTER → 2019-02-01 | Outpatient (REF) | payer OTHER ==
[~2019-02-01] MED LIST changes: -/ADVA50050 IN; -/ADVA50050 PO; +ADVA1AER2 IN; +ADVA1AER2 PO; -DULO30CA PO; +DULO30CA9 PO
[2019-02-01 20:28] LABS: APPEARANCE, URINE CLEAR (CLEAR); BACTERIA, URINE AUTO NEGATIVE (NEGATIVE); BILIRUBIN, URINE AUTO NEGATIVE (NEGATIVE); BLOOD, URINE BLOOD NEGATIVE (NEGATIVE); CALCIUM OXALATE CRYSTALS LARGE; COLOR, URINE YELLOW (YELLOW); GLUCOSE, URINE (UA) AUTO NEGATIVE (NEGATIVE); KETONE, URINE AUTO NEGATIVE (NEGATIVE); LEUKOCYTE ESTERASE, URINE AUTO NEGATIVE (NEGATIVE); MUCUS, URINE SMALL (NEGATIVE); NITRITE, URINE AUTO NEGATIVE (NEGATIVE); PROTEIN, URINE AUTO NEGATIVE (NEGATIVE); RBC, URINE AUTO 2 /HPF (0-3); SPECIFIC GRAVITY URINE AUTO 1.025 (1.002-1.035); SQUAMOUS EPITHELIAL CELL UR AU 1 /HPF (0-6); WBC, URINE AUTO 0 /HPF (0-3)
== END ==
LOC: M SMT 18:53
PROVIDERS: ATTEND Urology
DX: R30.0 Dysuria (principal)

== ENCOUNTER → 2019-02-14 | Outpatient (CLI) | payer OTHER ==
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
== END ==
LOC: M PAIN 09:15
PROVIDERS: ATTEND Anesthesiology
DX: M51.16 Intervertebral disc disorders with radiculopathy, lumbar region (principal); M51.17 Intervertebral disc disorders with radiculopathy, lumbosacral region; G89.29 Other chronic pain; J45.909 Unspecified asthma, uncomplicated; I10 Essential (primary) hypertension; E11.9 Type 2 diabetes mellitus without complications; Z98.84 Bariatric surgery status; Z96.642 Presence of left artificial hip joint; Z88.1 Allergy status to other antibiotic agents; Z88.5 Allergy status to narcotic agent; Z88.6 Allergy status to analgesic agent; Z79.899 Other long term (current) drug therapy

== ENCOUNTER → 2019-02-19 | Outpatient (CLI) | payer OTHER ==
--- NOTE | 2019-02-21 08:50 | REP ---
MR LUMBAR SPINE WITHOUT CONTRAST: HISTORY: Back pain. COMPARISON: 11/08/2014. A small central disc protrusion is present at the T12-L1 level. There is minimal effacement of the thecal sac without spinal cord compression. The T12 neural foramina are patent on sagittal images. There is no disc bulge or herniation at the L1-2 level. The L1 nerves exit the neural foramina without compression. A diffuse disc bulge is present at the L2-3 level. There is minimal compression of the thecal sac. There is hypertrophy of the posterior articulating facets. The L3 nerves exit the neural foramina without compression. A diffuse disc bulge is present at the L3-4 level. There is hypertrophy of the ligamenta flava and posterior articulating facets. These findings produce minimal central canal stenosis. The L3 nerves exit the neural foramina without compression. A diffuse disc bulge is present at the L4-5 level. There is hypertrophy of the ligamenta flava and posterior articulating facets. These findings produce minimal central canal stenosis. The L4 nerves exit the neural foramina without compression. A diffuse disc bulge is present at the L5-S1 level. There is minimal compression of the thecal sac. There is hypertrophy of the posterior articulating facets. The L5 nerves exit the neural foramina without compression. The conus medullaris is normal in appearance terminating at the level of the L1-2 intervertebral disc. Normal signal intensity is present in the lumbar vertebral bodies. IMPRESSION: 1. Diffuse disc bulges at the L2-3 and L5-S1 levels with minimal thecal sac compression. This is a new finding. 2. Minimal central canal stenosis at the L3-4 and L4-5 levels secondary to disc bulge, ligamentous, and facet hypertrophy. This is a new finding. 3. Small central disc protrusion at the T12-L1 level with minimal thecal sac compression. Electronically Signed by Gerry Martell MD 02/21/2019 09:00 A
--- NOTE | 2019-02-21 08:54 | REP ---
MR THORACIC SPINE WITHOUT CONTRAST: HISTORY: Back pain. COMPARISON: 08/07/2016. A small left paracentral disc protrusion is present at the T2-3 level. There is minimal effacement of the thecal sac without spinal cord compression. The T2 neural foramina a patent. Facet hypertrophy is present at the T10-11 level. There is minimal effacement of the thecal sac without spinal cord compression. The T10 neural foramina are patent. A disc bugle is present at the T12-L1 level. There is minimal effacement of the thecal sac without spinal cord compression. The T12 neural foramina are patent. There is no other disc bulge or herniation. The remaining neural foramina are patent. The spinal cord is normal in signal intensity. Normal signal intensity is present in the thoracic vertebral bodies. IMPRESSION: 1. Small left paracentral disc protrusion at the T2-3 level without spinal cord compression. 2. Facet hypertrophy at T10-11 level without spinal cord compression. 3. Disc bulge at the T12-L1 level without spinal cord compression. This is a new finding. Electronically Signed by Gerry Martell MD 02/21/2019 09:01 A
== END ==
LOC: M RAD 09:02
PROVIDERS: ATTEND Anesthesiology
DX: M51.26 Other intervertebral disc displacement, lumbar region (principal); M51.27 Other intervertebral disc displacement, lumbosacral region; M51.25 Other intervertebral disc displacement, thoracolumbar region; M48.061 Spinal stenosis, lumbar region without neurogenic claudication; M51.24 Other intervertebral disc displacement, thoracic region; M89.40 Other hypertrophic osteoarthropathy, unspecified site

== ENCOUNTER 2019-03-10 08:40 | Outpatient (RCR) | payer OTHER | END 2019-03-11 | LOC: M PT 08:40 | PROVIDERS: ATTEND Physician Assistant | DX: G54.0 Brachial plexus disorders (principal); Z98.890 Other specified postprocedural states ==

== ENCOUNTER 2019-03-29 10:12 | Outpatient (RCR) | payer OTHER | END 2019-04-10 | LOC: M PT 10:12 | PROVIDERS: ATTEND Physician Assistant | DX: Z98.890 Other specified postprocedural states (principal) ==

== ENCOUNTER → 2019-04-08 | Outpatient (CLI) | payer OTHER ==
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
== END ==
LOC: M PAIN 09:00
PROVIDERS: ATTEND Anesthesiology
DX: M51.16 Intervertebral disc disorders with radiculopathy, lumbar region (principal); J45.909 Unspecified asthma, uncomplicated; I10 Essential (primary) hypertension; E11.43 Type 2 diabetes mellitus with diabetic autonomic (poly)neuropathy; K31.84 Gastroparesis; M48.061 Spinal stenosis, lumbar region without neurogenic claudication; Z98.84 Bariatric surgery status; Z79.891 Long term (current) use of opiate analgesic; Z96.642 Presence of left artificial hip joint; Z88.1 Allergy status to other antibiotic agents; Z88.5 Allergy status to narcotic agent; Z88.6 Allergy status to analgesic agent

== ENCOUNTER 2019-04-13 09:28 | Outpatient (RCR) | payer OTHER | END 2019-05-11 | LOC: M PT 09:28 | PROVIDERS: ATTEND Physician Assistant | DX: Z51.89 Encounter for other specified aftercare (principal); Z98.1 Arthrodesis status ==

== ENCOUNTER → 2019-06-08 | Outpatient (CLI) | payer OTHER ==
[~2019-06-08] MED LIST changes: -AZIT500T2 PO; +AZIT500T5 PO; +CYMB60CA3 PO; +GABA600T4 PO; +LISI10TA4 PO; +METH5TA PO; +OXYC15TA66 PO; +PROV108A INH
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
== END ==
LOC: M PAIN 11:15
PROVIDERS: ATTEND Family Medicine
DX: M51.17 Intervertebral disc disorders with radiculopathy, lumbosacral region (principal); G89.29 Other chronic pain; J45.909 Unspecified asthma, uncomplicated; E11.9 Type 2 diabetes mellitus without complications; Z98.84 Bariatric surgery status; Z96.642 Presence of left artificial hip joint; Z88.1 Allergy status to other antibiotic agents; Z88.5 Allergy status to narcotic agent; Z88.6 Allergy status to analgesic agent; Z79.899 Other long term (current) drug therapy

== ENCOUNTER 2019-08-08 10:05 | Day surgery (SDC) | payer OTHER ==
[~2019-08-08] VITALS: Ht 167.6 cm; Wt 89.8 kg
[2019-08-08] MEDS ORDERED: PROPOFOL 200 MG/20 ML VIAL As Ordered ONE (11:41)
[2019-08-08] MEDS ORDERED: LIDOCAINE 2% INJ 100 MG/5 ML SDV (FOR ANES.) As Ordered ONE (11:41)
--- NOTE | 2019-08-08 12:37 | ROOR ---
Patient Name: Carri Haro Procedure Date: 08/08/2019 12:23 PM Date of : 1970 Age: 48 Room: [facility] Gender: Female Note Status: Finalized Procedure: Upper GI endoscopy Indications: Dyspepsia, Heartburn, Gastroparesis Providers: Tomás PEARSON MD Referring MD: Lisa OKEEFE DO Requesting Provider: Medicines: Monitored Anesthesia Care Complications: No immediate complications. Procedure: Pre-Anesthesia Assessment: - The heart rate, respiratory rate, oxygen saturations, blood pressure, adequacy of pulmonary ventilation, and response to care were monitored throughout the procedure. The Endoscope was introduced through the mouth, and advanced to the jejunum. The upper GI endoscopy was accomplished without difficulty. The patient tolerated the procedure well. Findings: The examined esophagus was normal. Evidence of a Yanelis-en-Y gastrojejunostomy was found. The gastrojejunal anastomosis was characterized by healthy appearing mucosa. The exam of the stomach was otherwise normal. The examined jejunum was normal. Impression: - Normal esophagus. - Yanelis-en-Y gastrojejunostomy with gastrojejunal anastomosis characterized by healthy appearing mucosa. - Normal stomach otherwise. - Normal examined jejunum. - No specimens collected. Recommendation: - Observe patient's clinical course. - Continue present medications. Tomás Pearson MD Tomás PEARSON MD 08/08/2019 12:37:07 PM Electronically signed by Tomás PEARSON MD Number of Addenda: 0 Note Initiated On: 08/08/2019 12:23 PM Estimated Blood Loss: Estimated blood loss: none.
--- NOTE | 2019-08-08 12:57 | ROOR ---
Patient Name: Carri Haro Procedure Date: 08/08/2019 12:23 PM Date of : 1970 Age: 48 Room: [facility] Gender: Female Note Status: Finalized Procedure: Colonoscopy Indications: Screening for colorectal malignant neoplasm Providers: Tomás PEARSON MD Referring MD: Lisa OKEEFE DO Requestpraveen Provider: Medicines: Monitored Anesthesia Care Complications: No immediate complications. Procedure: Pre-Anesthesia Assessment: - The heart rate, respiratory rate, oxygen saturations, blood pressure, adequacy of pulmonary ventilation, and response to care were monitored throughout the procedure. The Colonoscope was introduced through the anus and advanced to the terminal ileum, with identification of the appendiceal orifice and IC valve. The colonoscopy was somewhat difficult due to inadequate bowel prep. Successful completion of the procedure was aided by lavage. The patient tolerated the procedure well. The quality of the bowel preparation was 30 percent obscured. Findings: The perianal and digital rectal examinations were normal. (EXAM: Complete, PREP: Suboptimal) Two sessile polyps were found in the splenic flexure and hepatic flexure. The polyps were 3 to 5 mm in size. These polyps were removed with a cold snare. Resection and retrieval were complete. There was evidence of a prior end-to-end colo-colonic anastomosis at 20 cm proximal to the anus. This was patent and was characterized by healthy appearing mucosa. The exam was otherwise without abnormality on direct and retroflexion views. Impression: - (EXAM: Complete, PREP: Suboptimal) - Two 3 to 5 mm polyps at the splenic flexure and at the hepatic flexure, removed with a cold snare. Resected and retrieved. - Patent end-to-end colo-colonic anastomosis, characterized by healthy appearing mucosa. - The examination was otherwise normal on direct and retroflexion views. Recommendation: - Repeat colonoscopy in 2 years because the bowel preparation was suboptimal. - (Rec alternate colon preparation for next colonoscopy) Tomás Pearson MD Tomás PEARSON MD 08/08/2019 12:56:44 PM Electronically signed by Tomás PEARSON MD Number of Addenda: 0 Note Initiated On: 08/08/2019 12:23 PM Estimated Blood Loss: Estimated blood loss: none.
[2019-08-08 13:20] VITALS: BP 182/91
== END 2019-08-08 13:28 | disposition home or self-care (01) ==
LOC: M OPP 10:05
PROVIDERS: ATTEND Internal Medicine Gastroenterology
DX: Z12.11 Encounter for screening for malignant neoplasm of colon (principal); D12.3 Benign neoplasm of transverse colon; Z98.0 Intestinal bypass and anastomosis status; Z80.0 Family history of malignant neoplasm of digestive organs; R10.13 Epigastric pain; G47.30 Sleep apnea, unspecified; K21.9 Gastro-esophageal reflux disease without esophagitis; Z79.891 Long term (current) use of opiate analgesic; Z79.899 Other long term (current) drug therapy; Z88.8 Allergy status to other drugs, medicaments and biological substances; Z98.84 Bariatric surgery status

== ENCOUNTER → 2019-12-23 | Outpatient (CLI) | payer OTHER ==
[~2019-12-23] MED LIST changes: +PROHANCE 279.3MG/ML 15ML VIAL (A9576) As Ordered ONE; +PROHANCE 279.3MG/ML 5ML VIAL (A9576) As Ordered ONE
--- NOTE | 2019-12-23 19:05 | REPVR ---
PROCEDURE INFORMATION: Exam: MR Cervical Spine Without Contrast Exam date and time: 12/23/2019 5:36 PM Age: 49 years old Clinical indication: Pain; Cervicalgia; Prior surgery; Surgery date: 6+ months; Surgery type: Fusion TECHNIQUE: Imaging protocol: Multiplanar magnetic resonance images of the cervical spine without contrast. COMPARISON: MRI-Spine,Cervical without con 05/03/2018 10:43 AM The report from the previous exam was not immediately available. FINDINGS: Vertebrae: No acute fracture is identified. The patient is status post C3-C7 fusion with anterior plate and screw fixation. Spinal cord: Small areas of increased T2 signal are again noted within the lateral aspects of the cord at the C6 level, likely representing myelomalacia. C2-C3: There is broad-based posterior disc bulging with a superimposed right paracentral disc protrusion. Thickening or ossification of the posterior longitudinal ligament in the right subarticular region is likely also present. There is thickening/buckling of the ligamentum flavum and moderate facet arthropathy. This is causing mild spinal canal stenosis and mild bilateral neural foraminal narrowing. C3-C4: There is a broad-based posterior disc osteophyte complex and marked uncinate spurring. This is causing mild/moderate spinal canal stenosis and mild bilateral neural foraminal narrowing. C4-C5: There is a shallow broad-based central disc osteophyte complex. This is causing minimal spinal canal stenosis. There is no significant neural foraminal narrowing. C5-C6: There is a shallow broad-based left subarticular disc osteophyte complex and moderate left uncinate spurring. This is causing mild spinal canal stenosis, moderate narrowing of the left subarticular recess, and mild left neural foraminal narrowing. C6-C7: There is mild uncinate spurring. There is no significant spinal canal or neural foraminal stenosis. C7-T1: There is a small shallow central disc protrusion. There is no significant spinal canal or neural foraminal stenosis. Vertebral arteries: Expected flow voids in the vertebral arteries. Soft tissues: The prevertebral soft tissues are within normal limits. IMPRESSION: 1. No acute abnormality. 2. Chronic postoperative and degenerative findings as discussed above. Electronically signed by: Amaury Huang On 12/23/2019 19:05:36 PM
== END ==
LOC: M RAD 17:31
PROVIDERS: ATTEND Physician Assistant
DX: M54.2 Cervicalgia (principal)

== ENCOUNTER → 2021-08-30 | Outpatient (REF) ==
[~2021-08-30] MED LIST changes: -CYMB60CA3 PO; +CYMB60CA4 PO; +GABA-282 PO; -GABA-843 PO; +LISI10TA22 PO; -LISI10TA4 PO; -MOVA1TAB2 PO; +NALO25TA PO; -PROHANCE 279.3MG/ML 15ML VIAL (A9576) As Ordered ONE; -PROHANCE 279.3MG/ML 5ML VIAL (A9576) As Ordered ONE
--- NOTE | 2021-08-30 12:34 | REP ---
INDICATION: PAIN COMPARISON: 05/01/2012 TECHNIQUE: Internal rotation, external rotation, and Y view. FINDINGS: Progressive moderate arthritic changes include cortical irregularity and spurring at the acromioclavicular joint as well as sclerosis and blunting to the glenoid rim. Subacromial space is normal. There is no evidence for acute fracture or dislocation. IMPRESSION: Early moderate degenerative changes. <Electronically signed by Colton Watson > 08/30/21 1940
== END ==
LOC: M PLAIMG 12:06
PROVIDERS: ATTEND Internal Medicine
DX: Z00.00 Encounter for general adult medical examination without abnormal findings (principal)

== ENCOUNTER → 2022-04-17 | Outpatient (REF) ==
[~2022-04-17] MED LIST changes: -CEFD1CAP8 PO; +CEFD300C41 PO
== END ==
LOC: M PLAIMG 10:48
PROVIDERS: ATTEND Internal Medicine
DX: Z00.00 Encounter for general adult medical examination without abnormal findings (principal)

== ENCOUNTER → 2022-05-16 | Outpatient (CLI) | payer OTHER ==
[2022-05-16 18:05] LABS: BASO % 0.7 % (0.0-1.0); EOS # 0.2 10^3/uL (0.0-0.5); EOS % 3.4 % (0.0-3.0); HEMATOCRIT 43.2 % (36.0-47.0); HEMOGLOBIN 14.1 g/dl (12.0-15.5); LYMPH # 1.9 10^3/uL (1.5-5.0); LYMPH % 33.7 % (24.0-44.0); MEAN CORPUSCULAR HGB CONC 32.6 g/dl (32.0-36.5); MEAN CORPUSCULAR VOLUME 82.8 fl (80.0-96.0); MONO # 0.3 10^3/uL (0.0-0.8); MONO % 5.9 % (2.0-8.0); NEUTROPHILS # 3.1 10^3/uL (1.5-8.5); NEUTROPHILS % 56.1 % (36.0-66.0); PLATELET COUNT, AUTOMATED 228 10^3/uL (150-450); RED BLOOD COUNT 5.22 10^6/uL (4.00-5.40); WHITE BLOOD COUNT 5.6 10^3/uL (4.0-10.0)
[2022-05-16 18:14] LABS: HEMOGLOBIN A1c 8.9 %
[2022-05-16 18:58] LABS: ALBUMIN 3.9 GM/DL (3.2-5.2); ALT/SGPT 30 U/L (12-78); BILIRUBIN,TOTAL 0.6 MG/DL (0.2-1.0); BLOOD UREA NITROGEN 11 MG/DL (7-18); CALCIUM LEVEL 9.6 MG/DL (8.5-10.1); CARBON DIOXIDE LEVEL 28 MEQ/L (21-32); CHLORIDE LEVEL 102 MEQ/L (98-107); FERRITIN 27 NG/ML (8-252); FREE T4 1.27 NG/DL (0.76-1.46); GLOMERULAR FILTRATION RATE > 60.0 (>51); GLUCOSE, FASTING 198 MG/DL (70-100); IRON (FE) 160 UG/DL (50-170); PERCENT SATURATION 42.8 % (13.2-45.0); POTASSIUM SERUM 3.7 MEQ/L (3.5-5.1); SODIUM LEVEL 139 MEQ/L (136-145); TOTAL IRON BINDING CAPACITY 374 UG/DL (250-450); TOTAL PROTEIN 7.1 GM/DL (6.4-8.2)
[2022-05-16 19:21] LABS: TOTAL 25(OH) VITAMIN D 37.4 NG/ML (30.0-100.0)
[2022-05-16 19:23] LABS: FOLATE 13.9 NG/ML; VITAMIN B12 LEVEL 230 PG/ML
== END ==
LOC: M WUC 10:58
PROVIDERS: ATTEND Family Medicine
DX: E11.43 Type 2 diabetes mellitus with diabetic autonomic (poly)neuropathy (principal); Z98.84 Bariatric surgery status

== ENCOUNTER → 2022-05-16 | Outpatient (CLI) | payer OTHER | LOC: M WUC 11:02 | PROVIDERS: ATTEND Orthopaedic Surgery | DX: M25.552 Pain in left hip (principal); Z96.642 Presence of left artificial hip joint ==

== ENCOUNTER → 2022-05-21 | Outpatient (REF) | payer OTHER ==
[2022-05-21 19:12] LABS: MALB URINE SIEMENS 8.1 MG/L
== END ==
LOC: M LAB REF 16:27
PROVIDERS: ATTEND Family Medicine
DX: E11.43 Type 2 diabetes mellitus with diabetic autonomic (poly)neuropathy (principal); Z98.84 Bariatric surgery status

== ENCOUNTER → 2022-08-01 | Outpatient (CLI) | payer OTHER ==
[~2022-08-01] MED LIST changes: +ALBU6.7H6 INH; -PROV108A INH
== END ==
LOC: M OUTALCOH 09:33
PROVIDERS: ATTEND Psychiatry & Neurology Psychiatry
DX: Z02.9 Encounter for administrative examinations, unspecified (principal)

== ENCOUNTER 2022-08-06 12:54 | Outpatient (RCR) | payer OTHER | END 2022-08-11 | LOC: M OUTALCOH 12:54 | PROVIDERS: ATTEND Psychiatry & Neurology Psychiatry | DX: F11.20 Opioid dependence, uncomplicated (principal); F12.10 Cannabis abuse, uncomplicated ==